=== PATIENT | female | born 1955 | race Two or more races ===

== ENCOUNTER 2020-01-08 10:28 | Outpatient (REF) | payer MEDICARE, SELFPAY | END 2020-01-08 10:29 | disposition home or self-care (01) | LOC: HO.LAB 10:28 | PROVIDERS: PCP Internal Medicine; Visit Provider Internal Medicine | DX: Z20.828 Contact with and (suspected) exposure to other viral communicable diseases (principal) | CPT/HCPCS: 87635 ==

== ENCOUNTER → 2020-04-12 13:15 | Outpatient (BNVA) | payer MEDICARE, SELFPAY | PROVIDERS: PCP Internal Medicine; Visit Provider Advanced Practice Midwife ==

== ENCOUNTER 2020-10-12 13:22 | Outpatient (REF) | payer MEDICARE, SELFPAY ==
--- NOTE | ~2020-10-12 | MM_ITS ---
EXAMINATION: BONE DENSITOMETRY CLINICAL INDICATION: Asymptomatic menopausal state. COMPARISON: None (current study represents initial baseline exam). TECHNIQUE: Using a [employer] DXA System (software version: 13.1) manufactured by [employer], dual-energy x-ray absorptiometry was performed of the lumbar spine and left hip. The images are of good technical quality. Summary results are attached. FINDINGS: AP SPINE L1-L4: BMD 1.061 g/cm2, Z-score 0.1, T-score -1.0, normal. LEFT FEMUR, NECK: BMD 0.814 g/cm2, Z-score -0.4, T-score -1.6, osteopenia. LEFT FEMUR, TOTAL: BMD 0.968 g/cm2, Z-score 0.6, T-score -0.3, normal. IDENTIFIED RISK FACTORS: Menopause. HISTORY OF FRACTURE: None listed. MEDICATIONS: Calcium supplements or multivitamin, vitamin D. MM/XR DEXA axial skeleton IMPRESSION: 1. DIAGNOSIS: Osteopenia based on the lowest T-score value of -1.6 in the femoral neck applying World Health Organization criteria. 2. 10-YEAR FRACTURE RISK PREDICTION, FRAX: Major osteoporotic fracture (clinical spine, forearm, hip or shoulder) 5.0%. Hip fracture 0.6%. 3. Treatment Recommendations: NOF guidelines recommend consideration for treatment in postmenopausal women and men age 50 and older presenting with the following: -A hip or vertebral (clinical or morphometric) fracture. -T-score less than or equal to -2.5 at the femoral neck or spine after appropriate evaluation to exclude secondary causes. -Low bone mass at the hip or spine and a 10-year fracture probability by FRAX of greater than or equal to 3% for hip fracture or greater than or equal to 20% for major osteoporotic fracture based on the [place] adapted WHO algorithm. 4. Other Recommendations: All treatment decisions require clinical judgment and consideration of individual patient factors, including patient preferences, comorbidities, previous drug use, risk factors not captured in the FRAX model (e.g. frailty, falls, vitamin D deficiency, increased bone turnover, interval significant decline in bone density) and possible under or overestimation of fracture risk by FRAX. Additional medical evaluation for secondary cause of low bone mineral density may be appropriate. FUTURE SCAN RECOMMENDATION: People with diagnosed cases of osteoporosis or at high risk for fracture should have regular bone mineral density tests. For patients eligible for Medicare, routine testing is allowed once every 2 years. The testing frequency can be increased to one year for patients who have rapidly progressing disease, those who are receiving or discontinuing medical therapy to restore bone mass, or have additional risk factors.
== END 2020-10-12 13:23 | disposition home or self-care (01) ==
LOC: HO.MAMMO 13:22
PROVIDERS: PCP Internal Medicine; Visit Provider Internal Medicine
DX: Z13.820 Encounter for screening for osteoporosis (principal); M85.80 Other specified disorders of bone density and structure, unspecified site; Z78.0 Asymptomatic menopausal state; Z79.899 Other long term (current) drug therapy
CPT/HCPCS: 77080

== ENCOUNTER → 2021-06-17 13:16 | Outpatient (BNVA) | payer MEDICARE, SELFPAY | PROVIDERS: PCP Internal Medicine; Visit Provider Advanced Practice Midwife | DX: Z13.89 Encounter for screening for other disorder (principal) ==

== ENCOUNTER 2021-07-23 08:53 | Outpatient (REF) | payer MEDICARE, SELFPAY ==
[2021-07-23 10:03] LABS: Alanine Aminotransferase 22 U/L (0-31); Albumin Level 4.5 g/dL (3.5-5.0); Alkaline Phosphatase 63 U/L (39-117); Anion Gap 14 (12-20); Aspartate Amino Transferase 21 U/L (5-31); Bilirubin Total 0.6 mg/dL (0.0-1.0); Blood Urea Nitrogen 10 mg/dL (9-16); Calcium 9.9 mg/dL (8.4-10.2); Carbon Dioxide 24 mmol/L (22-29); Chloride 107 mmol/L (96-108); Cholesterol 236 mg/dL; Estimated Glomerular Filt Rate > 60; Glucose Fasting 94 mg/dL (60-99); HDL Cholesterol 50 mg/dL; LDL Cholesterol Calculated 153 mg/dl; Potassium 4.2 mmol/L (3.3-5.1); Sodium 141 mmol/L (135-145); Total Protein 7.6 g/dL (6.5-8.0); Triglycerides 166 mg/dL
[2021-07-23 10:30] LABS: Free T4 (Free Thyroxine) 1.09 ng/dL (0.71-1.85); Thyroid Stimulating Hormone 2.36 uIU/mL (0.32-4.0)
[2021-07-28 13:12] LABS: Vitamin D 25-OH, D2 <4 ng/mL; Vitamin D 25-OH, D3 33 ng/mL; Vitamin D 25-OH, Total 33 ng/mL (30-100)
== END 2021-07-23 08:54 | disposition home or self-care (01) ==
LOC: HO.LAB 08:53
PROVIDERS: PCP Internal Medicine; Visit Provider Internal Medicine
DX: E03.9 Hypothyroidism, unspecified (principal); E66.9 Obesity, unspecified; E55.9 Vitamin D deficiency, unspecified
CPT/HCPCS: 36415; 80053; 80061; 82306; 84439; 84443

== ENCOUNTER 2021-12-08 09:06 | Outpatient (REF) | payer MEDICARE, SELFPAY ==
[2021-12-08 10:14] LABS: Alanine Aminotransferase 29 U/L (0-31); Albumin Level 4.4 g/dL (3.5-5.0); Alkaline Phosphatase 59 U/L (39-117); Anion Gap 14 (12-20); Aspartate Amino Transferase 25 U/L (5-31); Bilirubin Total 0.3 mg/dL (0.0-1.0); Blood Urea Nitrogen 9 mg/dL (9-16); Calcium 9.9 mg/dL (8.4-10.2); Carbon Dioxide 27 mmol/L (22-29); Chloride 106 mmol/L (96-108); Cholesterol 211 mg/dL; Estimated Glomerular Filt Rate > 60; Glucose Fasting 97 mg/dL (60-99); HDL Cholesterol 54 mg/dL; LDL Cholesterol Calculated 139 mg/dl; Potassium 4.7 mmol/L (3.3-5.1); Sodium 142 mmol/L (135-145); Total Protein 7.3 g/dL (6.5-8.0); Triglycerides 94 mg/dL
[2021-12-08 10:35] LABS: Thyroid Stimulating Hormone 1.87 uIU/mL (0.32-4.0); Vitamin D 25-OH Total 31.5 ng/mL (>30)
== END 2021-12-08 09:07 | disposition home or self-care (01) ==
LOC: HO.LAB 09:06
PROVIDERS: PCP Internal Medicine; Visit Provider Internal Medicine
DX: E78.00 Pure hypercholesterolemia, unspecified (principal); E55.9 Vitamin D deficiency, unspecified; E78.5 Hyperlipidemia, unspecified; E03.9 Hypothyroidism, unspecified
CPT/HCPCS: 36415; 80053; 80061; 82306; 84443

== ENCOUNTER 2022-04-18 10:00 | Outpatient (REF) | payer MEDICARE, SELFPAY ==
[2022-04-18 11:38] LABS: Alanine Aminotransferase 24 U/L (0-31); Albumin Level 4.3 g/dL (3.5-5.0); Alkaline Phosphatase 62 U/L (39-117); Anion Gap 13 (12-20); Aspartate Amino Transferase 21 U/L (5-31); Bilirubin Total 0.5 mg/dL (0.0-1.0); Blood Urea Nitrogen 7 mg/dL (9-16); Calcium 9.4 mg/dL (8.4-10.2); Carbon Dioxide 22 mmol/L (22-29); Chloride 110 mmol/L (96-108); Cholesterol 219 mg/dL; Estimated Glomerular Filt Rate > 60; Glucose Fasting 93 mg/dL (60-99); HDL Cholesterol 50 mg/dL; LDL Cholesterol Calculated 147 mg/dl; Potassium 4.3 mmol/L (3.3-5.1); Sodium 141 mmol/L (135-145); Triglycerides 114 mg/dL
[2022-04-18 11:52] LABS: Thyroid Stimulating Hormone 2.79 uIU/mL (0.32-4.0); Vitamin D 25-OH Total 24.1 ng/mL (>30)
== END 2022-04-18 10:01 | disposition home or self-care (01) ==
LOC: HO.LAB 10:00
PROVIDERS: PCP Internal Medicine; Visit Provider Internal Medicine
DX: E03.9 Hypothyroidism, unspecified (principal); I10 Essential (primary) hypertension; E55.9 Vitamin D deficiency, unspecified; E78.5 Hyperlipidemia, unspecified
CPT/HCPCS: 36415; 80053; 80061; 82306; 84443

== ENCOUNTER 2022-10-03 10:49 | Outpatient (REF) | payer MEDICARE, SELFPAY ==
--- NOTE | ~2022-10-03 | MM_ITS ---
EXAMINATION: MM SCREENING DIGITAL BREAST TOMOSYNTHESIS, BILATERAL CLINICAL INFORMATION: Screening. Asymptomatic. The lifetime risk of breast cancer based on the Tyrer-Cuzick Model is 9.1%. COMPARISON: Mammography: This study is compared with prior exams dating back to 2019. TECHNIQUE: Digital breast tomosynthesis is performed in both the craniocaudal and mediolateral oblique views along with computer-aided detection (CAD). Synthesized 2D images are generated from the tomosynthesis. FINDINGS: There are scattered areas of fibroglandular density (ACR BI-RADS breast composition Category b). There are no significant masses, abnormal calcifications, or other abnormalities. MM/MM tomosynthesis screening BI IMPRESSION: No mammographic evidence of malignancy. ASSESSMENT: BI-RADS BI-RADS 1 - Negative RECOMMENDATION: Routine annual mammography screening. 1 year F/U This examination should not preclude the clinical evaluation of a suspicious palpable abnormality. This patient's information was entered into a reminder system with a target due date for their next mammogram.
== END 2022-10-03 10:50 | disposition home or self-care (01) ==
LOC: HO.MAMMO 10:49
PROVIDERS: PCP Internal Medicine; Visit Provider Internal Medicine
DX: Z12.31 Encounter for screening mammogram for malignant neoplasm of breast (principal)
CPT/HCPCS: 77063; 77067

== ENCOUNTER → 2022-10-03 11:00 | Outpatient (BNV) | payer MEDICARE, SELFPAY | PROVIDERS: PCP Internal Medicine; Visit Provider Radiology Diagnostic Radiology | DX: Z12.31 Encounter for screening mammogram for malignant neoplasm of breast (principal) | CPT/HCPCS: 77063; 77067 ==

== ENCOUNTER 2022-10-20 12:49 | Outpatient (REF) | payer MEDICARE, SELFPAY ==
--- NOTE | ~2022-10-20 | MM_ITS ---
EXAMINATION: BONE DENSITOMETRY CLINICAL INDICATION: Menopause. COMPARISON: Baseline BD dated 10/12/2020. TECHNIQUE: Using a [employer] DXA System (software version: 13.1) manufactured by [employer], dual-energy x-ray absorptiometry was performed of the lumbar spine and left hip. The images are of good technical quality. Summary results are attached. FINDINGS: LEFT FEMUR, NECK: Current: BMD 0.768 g/cm2, Z-score -0.5, T-score -1.9, osteopenia. Baseline: BMD 0.814 g/cm2. LEFT FEMUR, TOTAL: Current: BMD 0.910 g/cm2, Z-score 0.4, T-score -0.8, normal, 6.0% decrease from baseline (<5% change is not significant). Baseline: BMD 0.968 g/cm2. AP SPINE L1-L4: Current: BMD 1.024 g/cm2, Z-score 0.1, T-score -1.3, osteopenia, 3.5% decrease from baseline (<5% change is not significant). Baseline: BMD 1.061 g/cm2. IDENTIFIED RISK FACTORS: Menopause. HISTORY OF FRACTURE: None listed. MEDICATIONS: None listed. MM/XR DEXA axial skeleton IMPRESSION: 1. DIAGNOSIS: Osteopenia based on the lowest T-score value of -1.9 in the femoral neck applying World Health Organization criteria. 2. 10-YEAR FRACTURE RISK PREDICTION, FRAX: Major osteoporotic fracture (clinical spine, forearm, hip or shoulder) 6.3%. Hip fracture 1.0%. 3. Treatment Recommendations: NOF guidelines recommend consideration for treatment in postmenopausal women and men age 50 and older presenting with the following: -A hip or vertebral (clinical or morphometric) fracture. -T-score less than or equal to -2.5 at the femoral neck or spine after appropriate evaluation to exclude secondary causes. -Low bone mass at the hip or spine and a 10-year fracture probability by FRAX of greater than or equal to 3% for hip fracture or greater than or equal to 20% for major osteoporotic fracture based on the [place] adapted WHO algorithm. 4. Other Recommendations: All treatment decisions require clinical judgment and consideration of individual patient factors, including patient preferences, comorbidities, previous drug use, risk factors not captured in the FRAX model (e.g. frailty, falls, vitamin D deficiency, increased bone turnover, interval significant decline in bone density) and possible under or overestimation of fracture risk by FRAX. Additional medical evaluation for secondary cause of low bone mineral density may be appropriate. FUTURE SCAN RECOMMENDATION: People with diagnosed cases of osteoporosis or at high risk for fracture should have regular bone mineral density tests. For patients eligible for Medicare, routine testing is allowed once every 2 years. The testing frequency can be increased to one year for patients who have rapidly progressing disease, those who are receiving or discontinuing medical therapy to restore bone mass, or have additional risk factors.
== END 2022-10-20 12:50 | disposition home or self-care (01) ==
LOC: HO.MAMMO 12:49
PROVIDERS: PCP Internal Medicine; Visit Provider Internal Medicine
DX: N95.9 Unspecified menopausal and perimenopausal disorder (principal); M85.80 Other specified disorders of bone density and structure, unspecified site
CPT/HCPCS: 77080

== ENCOUNTER → 2022-10-20 13:00 | Outpatient (BNV) | payer MEDICARE, SELFPAY | PROVIDERS: PCP Internal Medicine; Visit Provider Radiology Diagnostic Radiology | DX: N95.9 Unspecified menopausal and perimenopausal disorder (principal) | CPT/HCPCS: 77080 ==

== ENCOUNTER 2022-10-30 10:53 | Outpatient (REF) | payer MEDICARE, SELFPAY ==
[2022-10-30 15:23] VITALS: BMI 28.7
[2022-10-30 15:24] VITALS: BP 141/82; PULSE 67; RESP 18; TEMP 37.2; O2SAT 99
== END 2022-10-30 10:54 | disposition home or self-care (01) ==
LOC: HO.MS 10:53
PROVIDERS: PCP Internal Medicine; Visit Provider Ophthalmology
PROC: (CPT 66821; principal; 2022-10-30 13:10)
DX: H26.492 Other secondary cataract, left eye (principal)
CPT/HCPCS: 66821

== ENCOUNTER 2022-10-31 14:30 | Outpatient (AMB) | payer MEDICARE, SELFPAY ==
--- NOTE | 2022-10-31 14:38 | A.OFFVIS_ITS ---
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 female here today for pre colonoscopy screening.? Patient was sent to us by her PCP.? Patient had colonoscopy in November of 2014. One tubular adenoma found.? Patient denies any gastrointestinal symptoms in the past or at present.? No immediate family history of colorectal cancer. Denies history of difficulty with sedation or anesthesia in the past.? Negative for history of sleep apnea.? Denies any history of cardiac, renal, pulmonary, or hepatic disease.?? No history of infectious? diseases like hepatitis A, B, C, HIV or tuberculosis.? Patient is not on any anticoagulation therapy. [facility] Medical History Anxiety associated with depression Hypothyroid Lumbar strain Menopause present Obese Physical exam Polyarthralgia Pure hypercholesterolemia Surgical History History of hand surgery History of laparoscopic cholecystectomy Family History Father No problems noted. Mother Diabetes CHF (congestive heart failure) CKD (chronic kidney disease) Paternal Grandmother Breast cancer Brother Leukemia Paternal Aunt Breast cancer Social History Housing: House Alcohol intake: current Alcohol intake frequency: holidays/special occasions only Alcohol type: beer Patient Tobacco Use Status: Never used Tobacco Tobacco use type: Cigarette e-Cigarette/Vaping Use: Never Used Second Hand Smoke Exposure: No service: No Current occupational status: retired Cognitive needs: No Hearing needs: No Vision needs: No Female Reproductive History Menstrual Age of Menarche: 9 Review of Systems Const Denies weight gain and Denies weight loss ENT Reports no additional complaints, Denies dysphagia and Denies odynophagia Card Reports no additional complaints Resp Reports no additional complaints GI Denies abdominal pain, Denies belching, Denies melena, Denies bloating, Denies change in bowel habits, Denies dysphagia, Denies excessive flatus, Denies dyspepsia, Denies heartburn, Denies diarrhea, Denies loose stools, Denies nausea, Denies odynophagia and Denies vomiting Musc Reports no additional complaints Neuro Reports no additional complaints Psych Reports no additional complaints Endo Reports no additional complaints Physical Exam Vital Signs: Last Vital Signs Pulse 80 10/31/22 14:39 BP 127/76 10/31/22 14:39 BMI result Body Mass Index 28.7 Assessment & Plan Assessment & Plan (1) Tubular adenoma of colon: Code(s): D12.6 - Benign neoplasm of colon, unspecified Plan: One tubular adenoma found on colonoscopy in 2014. (2) Screen for colon cancer: Code(s): Z12.11 - Encounter for screening for malignant neoplasm of colon Plan: Patient denies any GI, cardiac or respiratory symptoms.? Denies any issues with anesthesia in the past.? Denies any history of sleep apnea.? No history infectious diseases in the past or present.? Not on any anticoagulation therapy.? No family or personal history of colon cancer or polyps.? Patient denies melena, hematochezia, unintentional weight loss or ribbon like stools.? Discussed at length the pre-procedure,? prep, diet & medications as well as what to expect prior, during and after the procedure.?? Stressed the importance of good bowel prep. ?Recommended the use of Vaseline or Calmoseptine OTC & baby wipes with bowel movements to promote comfort.? ?Patient verbalizes understanding and agrees to plan of care.? She was given the opportunity to ask questions and all questions answered.? We will see her after the procedure.? Medications: New bisacodyl (Dulcolax (bisacodyl)) take 2 tabs at noon the day before your colonoscopy 10 mg (2 x 5 mg) PO ONCE 1 day 2 tabs 0RF Z12.11 - Encounter for screening for malignant neoplasm of colon polyethylene glycol 3350 (Miralax) As directed by gastroenterology department at [facility] 238 grams PO ONCE 238 grams 0RF Z12.11 - Encounter for screening for malignant neoplasm of colon Coding Level of Care Code New Pt Level 3 (28598) Diagnoses Tubular adenoma of colon D12.6 Screen for colon cancer Z12.11 Time Spent (min) 40 Comment 30 minutes spent with patient and additional 10 minutes spent reviewing her records
[2022-10-31 14:39] VITALS: BP 127/76; PULSE 80; BMI 28.7
== END 2022-10-31 15:14 | disposition home or self-care (01) ==
PROVIDERS: PCP Internal Medicine; Visit Provider Nurse Practitioner Family
DX: D12.6 Benign neoplasm of colon, unspecified (principal); Z12.11 Encounter for screening for malignant neoplasm of colon
CPT/HCPCS: 99203

== ENCOUNTER → 2022-10-31 14:30 | Outpatient (BNVA) | payer MEDICARE, SELFPAY | PROVIDERS: PCP Internal Medicine; Visit Provider Nurse Practitioner Family | DX: Z12.11 Encounter for screening for malignant neoplasm of colon (principal); D12.6 Benign neoplasm of colon, unspecified | CPT/HCPCS: 99202 ==

== ENCOUNTER 2022-11-13 12:52 | Outpatient (REF) | payer MEDICARE, SELFPAY ==
[2022-11-13 13:24] VITALS: BP 159/79; PULSE 79; RESP 16; TEMP 37.1; O2SAT 99
[2022-11-13 13:28] VITALS: BMI 28.7
== END 2022-11-13 12:53 | disposition home or self-care (01) ==
LOC: HO.MS 12:52
PROVIDERS: PCP Internal Medicine; Visit Provider Ophthalmology
PROC: (CPT 66821; principal; 2022-11-13 14:50)
DX: H26.491 Other secondary cataract, right eye (principal)
CPT/HCPCS: 66821

== ENCOUNTER 2023-02-06 08:38 | Outpatient (REF) | payer MEDICARE, SELFPAY ==
[2023-02-06 10:07] LABS: Alanine Aminotransferase 23 U/L (0-31); Albumin Level 4.5 g/dL (3.5-5.0); Alkaline Phosphatase 61 U/L (39-117); Anion Gap 12 (12-20); Aspartate Amino Transferase 23 U/L (5-31); Bilirubin Total 0.3 mg/dL (0.0-1.0); Blood Urea Nitrogen 7 mg/dL (9-16); Calcium 9.8 mg/dL (8.4-10.2); Carbon Dioxide 29 mmol/L (22-29); Chloride 106 mmol/L (96-108); Cholesterol 215 mg/dL (<200); Estimated Glomerular Filt Rate 59; Glucose Fasting 88 mg/dL (60-99); HDL Cholesterol 58 mg/dL (>40); LDL Cholesterol Calculated 138 mg/dL (<100); Potassium 4.4 mmol/L (3.3-5.1); Sodium 143 mmol/L (135-145); Total Protein 7.9 g/dL (6.5-8.0); Triglycerides 97 mg/dL (<150)
[2023-02-06 10:22] LABS: Thyroid Stimulating Hormone 2.05 uIU/mL (0.32-4.0); Vitamin D 25-OH Total 34.2 ng/mL (>30)
== END 2023-02-06 08:39 | disposition home or self-care (01) ==
LOC: HO.LAB 08:38
PROVIDERS: PCP Internal Medicine; Visit Provider Internal Medicine
DX: E03.9 Hypothyroidism, unspecified (principal); E55.9 Vitamin D deficiency, unspecified; E78.5 Hyperlipidemia, unspecified; E78.00 Pure hypercholesterolemia, unspecified
CPT/HCPCS: 36415; 80053; 80061; 82306; 84443

== ENCOUNTER 2023-02-12 12:55 | Outpatient (AMB) | payer MEDICARE, SELFPAY ==
--- NOTE | 2023-02-12 13:17 | MHC.PC.OV ---
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 Accompanied by: Self / Same As Patient Allergies Penicillins [PENICILLINS] Allergy (Intermediate, Verified 02/12/23 13:35) RASH Medication List - Last Reconciled 02/12/23 by Ratna Palencia MD bisacodyl (Dulcolax (bisacodyl)) 10 mg (2 x 5 mg) PO ONCE 1 day ibuprofen 800 mg PO Q8H 30 days levothyroxine 50 mcg PO DAILY 90 days polyethylene glycol 3350 (Miralax) 238 grams PO ONCE Tobacco use date assessed: 07/10/22 Fall risk assessment: No Falls in past year Last assessed Fall Risk: 02/12/23 Dental Screening Dental Screen Date: 02/12/23 Did you have a dental visit in the last 12 months?: No Did you have a dental problem in the last 6 months where you did not have access to dental care?: No Was dental information given to patient?: Patient has dentist HPI HPI Comments History of Present Illness Details This is a 67 year old female with hypothyroidism, pure hypercholesterolemia and anxiety that complains of itchy scalp secondary to seborrheic dermatitis. Will prescribe selenium sulfide shampoo. TSH was normal. Cholesterol elevated but no need for statin due to low framingham risk score. Anxiety has worsen and sertraline was added. [facility] Medical History Lumbar strain Pure hypercholesterolemia Physical exam Polyarthralgia Obese Menopause present Hypothyroid Anxiety associated with depression Surgical History History of laparoscopic cholecystectomy History of hand surgery Family History Father No problems noted. Mother Diabetes CHF (congestive heart failure) CKD (chronic kidney disease) Paternal Grandmother Breast cancer Brother Leukemia Paternal Aunt Breast cancer Social History Housing: House Alcohol intake: current Alcohol intake frequency: holidays/special occasions only Alcohol type: beer Patient Tobacco Use Status: Never used Tobacco Tobacco use type: Cigarette e-Cigarette/Vaping Use: Never Used Second Hand Smoke Exposure: No service: No Current occupational status: retired Cognitive needs: No Hearing needs: No Vision needs: No Female Reproductive History Menstrual Age of Menarche: 9 Questionnaire Thrive Questionnaire Date Thrive assessed: 07/10/22 LOLIS-7 AMB Questionnaire LOLIS-7 Date LOLIS - 7 assessed: 08/08/22 Source: Developed by Drs. Bebo Herndon, Flor Ashby, Ramirez De La Garza and colleagues, with an educational ankur from [employer]. Review of Systems Const All systems reviewed & are unremarkable except as noted in HPI and below Eyes Reports no additional complaints, Denies change in vision and Denies other visual disturbances Card Denies chest pain at rest, Denies chest pain with activity, Denies edema, Denies irregular heart rhythm, Denies claudication, Denies dyspnea, Denies dyspnea on exertion, Denies orthopnea, Denies paroxysmal nocturnal dyspnea and Denies slow heart rate Resp Denies cough, Denies dyspnea and Denies dyspnea on exertion GI Denies abdominal pain, Denies change in bowel habits, Denies excessive flatus, Denies nausea and Denies vomiting Denies urinary incontinence, Denies urinary hesitancy and Denies urinary urgency Musc Denies abnormal gait, Denies atrophy, Denies deformity and Denies limited range of motion Skin/Breast Denies bleeding lesions, Denies changing lesions and Denies rash Neuro Denies abnormal gait and Denies lack of coordination Physical exam (Primary Care) Vital Signs: Last Vital Signs BP 130/70 02/12/23 13:18 BMI result Body Mass Index 28.3 Tobacco/Smoking Status: Tobacco use Status Tobacco use date assessed 07/10/22 02/12/23 13:21 Patient Tobacco Use Status Never used Tobacco 02/12/23 13:21 Tobacco use type Cigarette 02/12/23 13:21 e-Cigarette/Vaping Use Never Used 02/12/23 13:21 Thrive Assessment: Date of Thrive Assessment Date Thrive assessed 07/10/22 02/12/23 13:21 Eyes General: appearance normal, both eyes and all related structures Eyelids: Yes eyelids normal Conjunctivae: conjunctivae normal Neck Neck: Yes normal visual inspection and Yes supple Resp Effort & Inspection: normal respiratory effort Auscultation: clear to auscultation bilaterally Cardio Jugular venous distension: no JVD Rate: regular rate Rhythm: regular rhythm Heart sounds: S1 normal heart sound present and S2 normal heart sound present Extrem General: Yes full ROM Office Procedures Flu Questionnaire Does the patient have a severe egg allergy?: No Does the patient have severe life threatening allergies?: No Does the patient have a fever or illness today?: No Has the patient ever had Guillain-[place] Syndrome?: No Has the patient ever had any past reaction to a flu shot?: No Immunizations flu vacc [id number] 6mos up(PF) 60 mcg(15 mcgx4)/0.5 mL IM syringe Performing Provider: Ratna Palencia MD [facility] Administered by: JAQUAN Acosta on 02/12/23 13:50 Dose Route Admin Location Dispensed Lot Number Expiration Date NDC Consultant Internship 0.5 mL IM Right Deltoid 0.5 mL [id number] 09/23/23 [id number] [employer] VIS Given Date VIS Provided VIS Publication Date 02/12/23 Single Vaccine 20 Eligibility Eligibility Date Funding Source Not [facility] Eligible 02/12/23 Private Assessment and Plan Assessment & Plan (1) Hypothyroid: Code(s): E03.9 - Hypothyroidism, unspecified Qualifiers: Hypothyroidism type: acquired Qualified Code(s): E03.9 - Hypothyroidism, unspecified Plan: Continue levothyroxine. (2) Anxiety: Code(s): F41.9 - Anxiety disorder, unspecified Plan: Start sertraline. (3) Pure hypercholesterolemia: Code(s): E78.00 - Pure hypercholesterolemia, unspecified Plan: Continue low-cholesterol diet. (4) Seborrheic dermatitis of scalp: Code(s): L21.9 - Seborrheic dermatitis, unspecified Plan: Start selenium sulfide shampoo. Orders: Orders Influenza [id number] Immunization Today Z23 - Encounter for immunization Medications: New sertraline 25 mg PO DAILY 90 tabs 0RF 90 days F41.9 - Anxiety disorder, unspecified selenium sulfide 1% (Dandruff Shampoo (selenium sulfide)) massage into affected area; leave on for 10 mins ; rinse off thoroughly 1 appl topical DAILY 207 mL 3RF 30 days Discontinued ibuprofen Discontinued Reason: Patient Completed Course 800 mg PO Q8H 30 days 90 tabs 2RF Coding Level of Care Code Est Pt Level 4 (73174) Diagnoses Acquired hypothyroidism E03.9 Hypothyroidism type: acquired Anxiety F41.9 Pure hypercholesterolemia E78.00 Seborrheic dermatitis of scalp L21.9 Time Spent (min) 22
[2023-02-12 13:18] VITALS: BP 130/70; BMI 28.3
== END 2023-02-12 13:50 | disposition home or self-care (01) ==
PROVIDERS: Visit Provider Internal Medicine
DX: E03.9 Hypothyroidism, unspecified (principal); F41.9 Anxiety disorder, unspecified; E78.00 Pure hypercholesterolemia, unspecified; L21.9 Seborrheic dermatitis, unspecified; Z23 Encounter for immunization
CPT/HCPCS: 90471; 90686; 99214

== ENCOUNTER 2023-04-24 12:40 | Day surgery (SDC) | payer MEDICARE, SELFPAY ==
--- NOTE | 2023-04-24 13:34 | MHC.SHP ---
Pre-Procedural Eval Section A - 24 Hr Update-Section A only Date of Service: 04/24/23 Section B - Complete if H&P > 30 days Chief Complaint: Benign neoplasm of colon, unspecified Relevant Social History: None Present Medications: see Short Stay Collaborative assessment Medical History: Significant History (Lumbar strain Pure hypercholesterolemia Physical exam Polyarthralgia Obese Menopause present Hypothyroid Anxiety associated with depression) History of Previous Operations: Relevant previous surgery/procedure and date(s) (History of laparoscopic cholecystectomy History of hand surgery) Allergies: Allergies Allergy/AdvReac Type Severity Reaction Status Date / Time Penicillins [PENICILLINS] Allergy Intermediate RASH Verified 02/12/23 13:35 Review of Systems Sugical H&P ROS: Negative: Constitution, Cardiovascular, Respiratory, Neurological, Psychiatric, Hem-Onc, Allergic/Immunologic, Gastrointestinal, Genitourinary, Musculoskeletal, Integumentary, Endocrine and Eyes/Ears/Nose/Throat Exam Surgical H&P Exam: Normal: HEENT, Normal: Heart, Normal: Lungs, Normal: Extremities, Normal: Abdomen, Normal: Skin and Normal: Neurological Plan Diagnosis/Plan: Unchanged I have reviewed the history and physical and performed a pertinent physical examination on my patient. No changes have occurred unless specified. Time Spent With Patient Time: Total time managing care of this patient today ____ minutes.
[2023-04-24 13:51] VITALS: BP 137/70; PULSE 88; RESP 16; TEMP 36.5; O2SAT 99
[2023-04-24 13:58] VITALS: BMI 28.6
--- NOTE | 2023-04-24 14:18 | HO.ANESPROP2 ---
HPI - Anesthesia Eval Consult details Narrative: for colonoscopy [facility] Active Problems Active Problems: All Active Problems (Updated 02/12/23 @ 14:32 by Ratna Palencia MD) Seborrheic dermatitis of scalp (Acute) Anxiety (Acute) Tubular adenoma of colon (Acute) Medicare annual wellness visit, initial (Acute) Eyelid lesion (Acute) Elevated blood pressure reading without diagnosis of hypertension (Acute) Hypovitaminosis D (Acute) Lumbar strain (Acute) Pure hypercholesterolemia (Acute) Physical exam (Acute) Polyarthralgia (Acute) Obese (Acute) Menopause present (Acute) Hypothyroid (Acute) Anxiety associated with depression (Acute) Past Medical History Medical History Lumbar strain Pure hypercholesterolemia Physical exam Polyarthralgia Obese Menopause present Hypothyroid Anxiety associated with depression Family History Family History Father No problems noted. Mother Diabetes CHF (congestive heart failure) CKD (chronic kidney disease) Paternal Grandmother Breast cancer Brother Leukemia Paternal Aunt Breast cancer Family history of problems with anesthesia: No Surgical History Surgical History History of laparoscopic cholecystectomy History of hand surgery History of Problems with Anesthesia: No Social History Social History Housing: House Alcohol intake: current Alcohol intake frequency: does not drink Alcohol type: beer Patient Tobacco Use Status: Never used Tobacco Tobacco use type: Cigarette e-Cigarette/Vaping Use: Never Used Second Hand Smoke Exposure: No Use of substances other than those prescribed or required for medical reasons: No Are you DNR?: No Advance Directives: No Advance Directives Information Provided: Yes Advance Directives on File: No service: No Current occupational status: retired Cognitive needs: No Hearing needs: No Vision needs: No Meds Allergies Allergy/AdvReac Type Severity Reaction Status Date / Time Penicillins [PENICILLINS] Allergy Intermediate RASH Verified 02/12/23 13:35 Exam Height,Weight and Vital Signs: Height 5 ft 2 in Weight 70.817 kg Last Vital Signs Temp 97.7 F 04/24/23 13:51 Pulse 88 04/24/23 13:51 Resp 16 04/24/23 13:51 BP 137/70 04/24/23 13:51 Pulse Ox 99 04/24/23 13:51 O2 Del Method Room Air 04/24/23 13:51 Airway Mallampati Class: II TM Dist: >3cm Neck ROM: Full Heart: rrr Lungs: cta Assessment and Plan Assessment Anesthesia Assessment: Anesthesia Plan Discussed and Chart Reviewed Final Anesthetic Review Family History of Problems with Anesthesia: No History of Problems with Anesthesia: No NPO: Yes ASA Class: II Final Preanesthetic Review: No Changes in Pt Med Stat, Meds/Allgs Chart Reviewed, Consent Obtained/Reviewed and Anes Risks/Benef Reviewed Patient Risk: Low Procedure Risk: Low Anesthetic Plan Anesthetic Plan: MAC: Disposition: Standard PACU
--- NOTE | 2023-04-24 14:29 | P.OP_ITS ---
Operative Note Operative Note Date of Service: 04/24/23 Narrative: Operative Information Procedure Description: Colonoscopy Indication: hx of colon polyp Anesthesia: MAC COLONOSCOPY Instrument: Olympus variable stiffness pediatric scope 190L Colonoscopy Monitoring: Vital signs and clinical assessment, continuous EKG monitoring, Pulse oximetry, Carbon Dioxide monitoring and blood pressure monitoring were done throughout the procedure. Colon withdrawal time was [] minutes. Procedure: The patient was placed in the left lateral decubitis position and pre-procedure medications were administered. After a digital rectal examination of the ano-rectum, the video colonoscope was inserted into the rectum and advanced through the colon to the cecum/TI. The colonoscope was slowly withdrawn in a retrograde panoramic fashion and the colon mucosa was carefully examined including a retroflexed view of the rectum. Findings and interventions are described below. Procedure Difficulty: easy Findings: Terminal Ileum-normal Cecum:normal Ascending Colon: normal Transverse Colon -normal Descending Colon:normal Sigmoid Colon: moderate diverticulosis Rectum: Retroflexion with small to medium internal hemorrhoids, grade I, 4-5 mm sessile polyp removed with cold forceps Anorectum - normal Colon preparation: [place] Bowel Preparation Scale Right colon; 2 Transverse colon: 2 Left colon; 1-2 (0 = Unprepared colon segment with mucosa not seen due to solid stool that cannot be cleared. 1 = Portion of mucosa of the colon segment seen, but other areas of the colon segment not well seen due to staining, residual stool and/or opaque liquid. 2 = Minor amount of residual staining, small fragments of stool and/or opaque liquid, but mucosa of colon segment seen well. 3 = Entire mucosa of colon segment seen well with no residual staining, small fragments of stool or opaque liquid) Impression and Post Procedure Diagnosis: polyp internal hemorrhoids diverticular disease Plan: High fiber diet leaflet Avoid straining at stool, epsom salts and sitz bath, anusol supps or cream Repeat Colonoscopy in 5 years due to fair prep and polyp or earlier if clinically indicated Above findings were reviewed with the patient and relevant handouts were provided if indicated.
[2023-04-24 14:54] VITALS: BP 120/59; PULSE 81; RESP 19; TEMP 36.4; O2SAT 100
[2023-04-24 15:09] VITALS: BP 134/68; PULSE 68; RESP 17; TEMP 36.3; O2SAT 100
== END 2023-04-24 15:56 | disposition home or self-care (01) ==
PROVIDERS: PCP Internal Medicine; Visit Provider Internal Medicine Gastroenterology
PROC: 0DJD8ZZ Inspection of Lower Intestinal Tract, Via Natural or Artificial Opening Endoscopic (ICD-10-PCS; CPT 45378; principal; 2023-04-24 14:50)
DX: Z12.11 Encounter for screening for malignant neoplasm of colon (principal); Z86.010 Personal history of colon polyps; D12.8 Benign neoplasm of rectum; K57.30 Diverticulosis of large intestine without perforation or abscess without bleeding; K64.0 First degree hemorrhoids; F41.8 Other specified anxiety disorders; E03.9 Hypothyroidism, unspecified; E78.00 Pure hypercholesterolemia, unspecified; M25.50 Pain in unspecified joint; Z88.0 Allergy status to penicillin; Z90.49 Acquired absence of other specified parts of digestive tract
CPT/HCPCS: 45380; 88305; J2704

== ENCOUNTER → 2023-04-24 12:40 | Outpatient (BNV) | payer MEDICARE, SELFPAY | PROVIDERS: PCP Internal Medicine; Visit Provider Internal Medicine Gastroenterology | DX: Z12.11 Encounter for screening for malignant neoplasm of colon (principal); Z86.010 Personal history of colon polyps; D12.8 Benign neoplasm of rectum; K57.30 Diverticulosis of large intestine without perforation or abscess without bleeding | CPT/HCPCS: 45380 ==

== ENCOUNTER 2023-06-12 10:19 | Outpatient (AMB) | payer MEDICARE, SELFPAY ==
--- NOTE | 2023-06-12 10:23 | A.OFFVIS_ITS ---
Intake Vital Signs 06/12/23 10:25 Height 5 ft 2 in Weight 154 lb 5.177 oz BMI 28.2 BP 139/67 Blood Pressure Location Lt brachial Position Sitting Pulse 72 Intake Visit Reasons: S/p colon Intake Note: Jessica presents in the office as a follow up colonsocopy. CC: She is just here for the results. [place] Required: Yes Weaver [place] Name: [id number] joseph Allergies Penicillins [PENICILLINS] Allergy (Intermediate, Verified 06/12/23 10:27) RASH HPI S/p colon HPI Details LAST VISIT Tubular adenoma of colon One tubular adenoma found on colonoscopy in 2014. Screen for colon cancer Patient denies any GI, cardiac or respiratory symptoms.? Denies any issues with anesthesia in the past.? Denies any history of sleep apnea.? No history infectious diseases in the past or present.? Not on any anticoagulation therapy.? No family or personal history of colon cancer or polyps.? Patient denies melena, hematochezia, unintentional weight loss or ribbon like stools.? Discussed at length the pre-procedure,? prep, diet & medications as well as what to expect prior, during and after the procedure.?? Stressed the importance of good bowel prep. ?Recommended the use of Vaseline or Calmoseptine OTC & baby wipes with bowel movements to promote comfort.? ?Patient verbalizes understanding and agrees to plan of care.? She was given the opportunity to ask questions and all questions answered.? We will see her after the procedure.? Plan Medications New bisacodyl (Dulcolax (bisacodyl)) take 2 tabs at noon the day before your colonoscopy 10 mg (2 x 5 mg) PO ONCE 1 day 2 tabs 0RF Z12.11 - Encounter for screening for malignant neoplasm of colon polyethylene glycol 3350 (Miralax) As directed by gastroenterology department at [facility] 238 grams PO ONCE 238 grams 0RF Z12.11 - Encounter for screening for malignant neoplasm of colon COLONOSCOPY Findings: Terminal Ileum-normal Cecum:normal Ascending Colon: normal Transverse Colon -normal Descending Colon:normal Sigmoid Colon: moderate diverticulosis Rectum: Retroflexion with small to medium internal hemorrhoids, grade I, 4-5 mm sessile polyp removed with cold forceps Anorectum - normal Colon preparation: [place] Bowel Preparation Scale Right colon; 2 Transverse colon: 2 Left colon; 1-2 (0 = Unprepared colon segment with mucos a not seen due to solid stool that cannot be cleared. 1 = Portion of mucosa of the colon segme nt seen, but other areas of the colon segment not well seen due to staining, residual stool and/or opaque liquid. 2 = Minor amount of residual staining, s mall fragments of stool and/or opaque liquid, but mucosa of colon segment seen well. 3 = Entire mucosa of colon segment seen well with no residual staining, small fragments of stool or opaque liquid) Impression and Post Procedure Diagnosis: polyp internal hemorrhoids diverticular disease Plan: High fiber diet leaflet Avoid straining at stool, epsom salts and sitz bath, anusol supps or cream Repeat Colonoscopy in 5 years due to fair prep and polyp or earlier if clinically indicated PATHOLOGY RESULTS Diagnosis Colon, rectal polyp: Tubular adenoma; negative for high-grade dysplasia and carcinoma TODAY'S VISIT: Patient is here today for follow-up and to discuss colonoscopy results. Patient denies any ill effects from the prep, anesthesia or procedure itself. Patient reports that she has been feeling well, moving her bowels without any issues. Patient denies diarrhea, constipation. Denies any abdominal pain or discomfort. Reports that she has good appetite. Denies dyspepsia, dysphagia or odynophagia. Patient reports to be feeling well. 1 small polyp showing tubular adenoma without high-grade dysplasia or carcinoma found in the patient's rectum. Internal hemorrhoids and moderate diverticulosis in sigmoid colon. Patient reports that she is trying to increase fiber in her diet. [facility] Medical History (Updated 06/12/23 @ 19:04 by Ashley Mcnair MAPPING SPECIALIST-) Internal hemorrhoids without complication Diverticulosis Lumbar strain Pure hypercholesterolemia Physical exam Polyarthralgia Obese Menopause present Hypothyroid Anxiety associated with depression Surgical History (Updated 06/12/23 @ 10:28 by JAQUAN Rea) Hx of colonoscopy History of laparoscopic cholecystectomy History of hand surgery Family History Father No problems noted. Mother Diabetes CHF (congestive heart failure) CKD (chronic kidney disease) Paternal Grandmother Breast cancer Brother Leukemia Paternal Aunt Breast cancer Social History Housing: House Alcohol intake: current Alcohol intake frequency: does not drink Alcohol type: beer Patient Tobacco Use Status: Never used Tobacco Tobacco use type: Cigarette e-Cigarette/Vaping Use: Never Used Second Hand Smoke Exposure: No service: No Current occupational status: retired Cognitive needs: No Hearing needs: No Vision needs: No Female Reproductive History Menstrual Age of Menarche: 9 Review of Systems Const Denies weight gain and Denies weight loss ENT Reports no additional complaints, Denies dysphagia and Denies odynophagia Card Reports no additional complaints Resp Reports no additional complaints GI Denies abdominal pain, Denies belching, Denies melena, Denies bloating, Denies change in bowel habits, Denies dysphagia, Denies excessive flatus, Denies dyspep denisse, Denies heartburn, Denies diarrhea, Denies loose stools, Denies nausea, Denies odynophagia and Denies vomiting Musc Reports no additional complaints Neuro Reports no additional complaints Psych Reports no additional complaints Endo Reports no additional complaints Physical Exam Vital Signs: Last Vital Signs Pulse 72 06/12/23 10:25 BP 139/67 06/12/23 10:25 BMI result Body Mass Index 28.2 Const General: healthy appearing, no acute distress and well developed Nutritional Appearance: obese Orientation/consciousness: patient oriented x3 Resp Effort & Inspection: normal respiratory effort, able to speak in complete sentences, no tracheal deviation and symmetric chest movement Auscultation: clear to auscultation bilaterally Cardio Rate: regular rate GI Inspection: Yes normal to inspection, No distended and Yes obesity Palpation (GI): Soft to palpation, not firm, nontender and No hepatosplenomegaly present Auscultation: normal bowel sounds General: Yes no CVA tenderness Back/Spine/Pelvis Back: no CVA tenderness Skin General skin exam: elasticity normal, turgor normal and dry skin Neuro General: patient oriented x3 Psych Appearance: grossly normal Mental Status: mental status grossly normal Assessment & Plan Assessment & Plan (1) Tubular adenoma of colon: Code(s): D12.6 - Benign neoplasm of colon, unspecified (2) Diverticulosis: Code(s): K57.90 - Diverticulosis of intestine, part unspecified, without perforation or abscess without bleeding (3) Internal hemorrhoids without complication: Code(s): K64.8 - Other hemorrhoids (4) Status post colonoscopy: Code(s): Z98.890 - Other specified postprocedural states Plan Colonoscopy results discussed with patient. One small tubular adenoma found without high-grade dysplasia or carcinoma. Patient had suboptimal prep and patient will return for colorectal screening in 5 years sooner if clinically necessary. Discussed with patient the importance of high-fiber diet. Patient can take [id number] probiotics as well as fiber supplement. Patient will return to the office on as needed basis. Both patient and her daughter are agreeable to plan of care and verbalizes understanding of instructions. They were given the opportunity to ask questions and all questions answered. Thank you for allowing me to participate her care Coding Level of Care Code Est Pt Level 3 (58726) Diagnoses Tubular adenoma of colon D12.6 Diverticulosis K57.90 Internal hemorrhoids without complication K64.8 Status post colonoscopy Z98.890 Time Spent (min) 30 Comment 20 minutes spent with patient and additional 10 minutes spent reviewing her records
[2023-06-12 10:25] VITALS: BP 139/67; PULSE 72; BMI 28.2
== END 2023-06-12 10:42 | disposition home or self-care (01) ==
PROVIDERS: PCP Internal Medicine; Visit Provider Nurse Practitioner Family
DX: D12.6 Benign neoplasm of colon, unspecified (principal); K57.90 Diverticulosis of intestine, part unspecified, without perforation or abscess without bleeding; K64.8 Other hemorrhoids; Z98.890 Other specified postprocedural states
CPT/HCPCS: 99213

== ENCOUNTER → 2023-06-12 10:19 | Outpatient (BNVA) | payer MEDICARE, SELFPAY | PROVIDERS: PCP Internal Medicine; Visit Provider Nurse Practitioner Family | DX: K57.90 Diverticulosis of intestine, part unspecified, without perforation or abscess without bleeding (principal); K64.8 Other hemorrhoids; D12.6 Benign neoplasm of colon, unspecified; Z90.49 Acquired absence of other specified parts of digestive tract; Z98.890 Other specified postprocedural states | CPT/HCPCS: 99212 ==

== ENCOUNTER 2023-07-31 10:40 | Outpatient (REF) | payer MEDICARE, SELFPAY ==
[2023-08-03 22:47] LABS: HPV mRNA E6/E7 rflx Not Detected (Not Detected)
== END 2023-07-31 10:41 | disposition home or self-care (01) ==
LOC: HO.LNP 10:40
PROVIDERS: PCP Internal Medicine; Visit Provider Advanced Practice Midwife
DX: Z01.419 Encounter for gynecological examination (general) (routine) without abnormal findings (principal); Z11.51 Encounter for screening for human papillomavirus (HPV)
CPT/HCPCS: 87624; 88142; G0101; Q0091

== ENCOUNTER 2023-07-31 10:40 | Outpatient (AMB) | payer MEDICARE, SELFPAY ==
--- NOTE | 2023-07-31 11:19 | MHC.OFFVIS ---
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 She is doing well with no concerns. Attempting to eat a healthy diet with calcium and vitamin D and stays active with exercise. Denies any vaginal dryness or irritation. STI testing offered; she declines, no active in many years. Last pap smear; 2018. Last mammogram; 2022. Colonoscopy is UTD. Family history of breast, no ovarian or colon cancer. [facility] Medical History Internal hemorrhoids without complication Diverticulosis Lumbar strain Pure hypercholesterolemia Physical exam Polyarthralgia Obese Menopause present Hypothyroid Anxiety associated with depression Surgical History Hx of colonoscopy History of laparoscopic cholecystectomy History of hand surgery Family History Father No problems noted. Mother Diabetes CHF (congestive heart failure) CKD (chronic kidney disease) Paternal Grandmother Breast cancer Brother Leukemia Paternal Aunt Breast cancer Social History Housing: House Alcohol intake: current Alcohol intake frequency: does not drink Alcohol type: beer Patient Tobacco Use Status: Never used Tobacco Tobacco use type: Cigarette e-Cigarette/Vaping Use: Never Used Second Hand Smoke Exposure: No service: No Current occupational status: retired Cognitive needs: No Hearing needs: No Vision needs: No Female Reproductive History Menstrual Age of Menarche: 9 Total pregnancies: 3 Full term: 2 Number of Living Children: 2 Date of last pap smear: 04/20/18 (neg pap and hpv) Date of Mammogram: 10/03/22 (Birad 1) Date of last Bone Density Screenin10/20/22 Review of Systems Const All systems reviewed & are unremarkable except as noted in HPI and below Reports as per HPI Eyes Reports no additional complaints ENT Reports no additional complaints Card Reports no additional complaints Resp Reports no additional complaints GI Reports as per HPI and Reports no additional complaints Reports as per HPI Musc Reports no additional complaints Skin/Breast Reports as per HPI Neuro Reports no additional complaints Psych Reports no additional complaints Endo Reports no additional complaints Sridhar/Lymph Reports no additional complaints Aller/Immun Reports no additional complaints Physical Exam Vital Signs: Last Vital Signs BP 102/68 07/31/23 11:21 BMI result Body Mass Index 28.2 Const General: cooperative, healthy appearing, no acute distress, well developed and alert Orientation/consciousness: patient oriented x3 HEENT Head: Yes normal to inspection Eyes General: appearance normal, both eyes and all related structures Neck Neck: Yes normal visual inspection Thyroid: Thyroid normal Chest Chest palpation & inspection: normal inspection of the chest and other (no puckering, dimpling, peau de orange, retraction, discharge, masses) Breast/axilla inspection: normal inspection of the breasts Breast/axilla palpation: normal palpation of the breasts Resp Effort & Inspection: normal respiratory effort GI Inspection: Yes normal to inspection and Yes scar Palpation (GI): Soft to palpation Rectal Exam - Female: deferred General: Yes bladder normal to palpation External Female Exam: normal external appearance and normal appearance of the urethra Speculum Exam - Vagina: normal appearance of the vagina, normal palpation, normal vaginal discharge and vagina atrophic Speculum Exam - Cervix: normal appearance of the cervix, normal palpation and Other cervical findings present (Atrophic bled slightly with Pap) Bimanual exam- vagina & uterus: normal bimanual exam, normal palpation, uterine size normal, bladder normal to palpation, normal palpation and non-tender Bimanual Exam- Adnexa, other: no masses Skin General skin exam: no rashes or lesions noted Rashes: no rashes Neuro General: patient oriented x3 Cognition (Neuro): normal cognition Extrem General: Yes normal to inspection Psych Attitude: cooperative Thought process: Normal thought process present Assessment & Plan Assessment & Plan (1) Encounter for well woman exam with routine gynecological exam: Code(s): Z01.419 - Encounter for gynecological examination (general) (routine) without abnormal findings Plan Discussed: Current recommendations for pap smears per ASCCP guidelines. Breast awareness, periodic self breast exams and yearly mammogram. Maintain a healthy lifestyle, well balanced diet including Calcium 1,200 mg and Vitamin D 800 IU daily, and routine exercise. Contact the office with any postmenopausal bleeding. Patient verbalizes understanding and agrees to the plan of care. She was given opportunity to ask questions and all questions were answered to the best of my ability. Return to the office 1 year. This note is constructed using voice recognition software. While every effort has been made to ensure accuracy, director specialty errors may have been included. 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 Coding Level of Care Code Est Pt Prev Care >65y(18413) Diagnoses Encounter for well woman exam with routine gynecological exam Z01.419
[2023-07-31 11:21] VITALS: BP 102/68; BMI 28.2
== END 2023-07-31 11:55 | disposition home or self-care (01) ==
LOC: HO.HWS 10:40
PROVIDERS: PCP Internal Medicine; Referring Provider Internal Medicine; Visit Provider Advanced Practice Midwife
DX: Z01.419 Encounter for gynecological examination (general) (routine) without abnormal findings (principal)
CPT/HCPCS: G0101; Q0091

== ENCOUNTER 2023-08-13 12:35 | Outpatient (AMB) | payer MEDICARE, SELFPAY ==
--- NOTE | 2023-08-13 12:40 | A.OFFPC_ITS ---
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 by: Self / Same As Patient Allergies Penicillins [PENICILLINS] Allergy (Intermediate, Verified 08/13/23 12:56) RASH Medication List - Last Reconciled 08/13/23 by Ratna Palencia MD levothyroxine 50 mcg PO DAILY 90 days selenium sulfide 1% (Dandruff Shampoo (selenium sulfide)) 1 appl topical DAILY 30 days sertraline 25 mg PO DAILY 90 days Tobacco use date assessed: 08/13/23 Fall risk assessment: No Falls in past year Last assessed Fall Risk: 08/13/23 Dental Screening Dental Screen Date: 08/13/23 Did you have a dental visit in the last 12 months?: Yes Did you have a dental problem in the last 6 months where you did not have access to dental care?: No Was dental information given to patient?: Patient has dentist HPI HPI Comments History of Present Illness Details This is a 68-year-old female that comes for her physical exam. Last mammogram was September 2022 and I order another mammogram. Last Pap smear was July 2023 and results are still pending. Colonoscopy done 2023 showing tubular adenoma next colonoscopy should be in 5 years. Bone density done 2022. No chest pain or shortness of breath. Complains of tremors more prominent when having a cup of coffee. PFSH Medical History Internal hemorrhoids without complication Diverticulosis Lumbar strain Pure hypercholesterolemia Physical exam Polyarthralgia Obese Menopause present Hypothyroid Anxiety associated with depression Surgical History Hx of colonoscopy History of laparoscopic cholecystectomy History of hand surgery Family History (Updated 08/13/23 @ 13:00 by Ratna Palencia MD) Father No problems noted. Mother Diabetes CHF (congestive heart failure) CKD (chronic kidney disease) Dementia Paternal Grandmother Breast cancer Brother Leukemia Paternal Aunt Breast cancer Social History (Updated 08/13/23 @ 13:00 by Ratna Palencia MD) Housing: House Alcohol intake: current Alcohol intake frequency: holidays/special occasions only Alcohol type: beer Patient Tobacco Use Status: Never used Tobacco e-Cigarette/Vaping Use: Never Used Second Hand Smoke Exposure: No service: No Current occupational status: retired Cognitive needs: No Hearing needs: No Vision needs: No Female Reproductive History Menstrual Age of Menarche: 9 Questionnaire PHQ-9 Over the last 2 weeks, how often have you been bothered by any of the following problems? 1. Little interest or pleasure in doing things: not at all 2. Feeling down, depressed, or hopeless: not at all 3. Trouble falling or staying asleep, or sleeping too much: not at all 4. Feeling tired or having little energy: not at all 5. Poor appetite or overeating: not at all 6. Feeling bad about yourself - or that you are a failure or have let yourself or your family down: not at all 7. Trouble concentrating on things, such as reading the newspaper or watching television: not at all 8. Moving or speaking so slowly that other people could have noticed. Or the opposite - being so fidgety or restless that you have been moving around a lot more than usual: not at all 9. Thoughts that you would be better off or of hurting yourself in some way: not at all Total score: 0 Depression Screening Interpretation: Negative Depression Screening Done: Yes [id number] - PHQ-9 Billing: Yes Source: Developed by Drs. Bebo Herndon, Flor Ashby, Ramirez De La Garza and colleagues, with an educational ankur from [employer]. Thrive Questionnaire Date Thrive assessed: 08/13/23 I am a: Patient What is your living situation today?: I have a steady place to live Within the past 12 months, did the food you bought not last and you didn't have the money to get more?: Never true Within the past 12 months, did you worry whether your food would run out before you got money to buy more?: Never true Do you have trouble paying for medicines?: No Do you have trouble getting transportation to medical appointments?: No Do you have trouble paying your heating and electricity bill?: No Do you have trouble taking care of your child, family member or friend?: No Do you have trouble with day-to-day activities such as bathing, preparing meals, shopping, managing finances, etc.?: No Are you currently unemployed and looking for a job?: No Are you interested in more education?: No Please select the resources that you would like help with: None Currently or been in a relationship where the following occur: no concerns reported THRIVE Score: 0 AUDIT C Alcohol Use Questionnaire (AUDIT-C) 1. How often do you have a drink containing alcohol?: Never Total Score: 0 LOLIS-7 AMB Questionnaire LOLIS-7 Date LOLIS - 7 assessed: 08/13/23 Feeling nervous, anxious, or on edge: 2 = More than half the days Not being able to stop or control worryin = Not at all Worrying too much about different things: 1 = Several days Trouble relaxin = Several days Being so restless that it is hard to sit still: 1 = Several days Becoming easily annoyed or irritable: 0 = Not at all Feeling afraid as if something awful might happen: 1 = Several days Total LOLIS-7 score (0-4 normal; 5-9 mild; 10-14 moderate; 15-21 severe): 6 Source: Developed by Drs. Bebo Herndon, Flor Ashby, Ramirez De La Garza and colleagues, with an educational ankur from [employer]. LOLIS-7 Assessment Billing LOLIS-7 Assessment Tool: LOLIS-7 Assessment 27333 Review of Systems Const All systems reviewed & are unremarkable except as noted in HPI and below Card Denies chest pain at rest, Denies chest pain with activity, Denies edema, Denies irregular heart rhythm, Denies claudication, Denies dyspnea, Denies dyspnea on exertion, Denies orthopnea, Denies paroxysmal nocturnal dyspnea and Denies slow heart rate Resp Denies cough, Denies dyspnea and Denies dyspnea on exertion Neuro Denies behavioral changes and Denies confusion Psych Denies behavioral changes and Denies confusion Physical exam (Primary Care) Vital Signs: Last Vital Signs BP 126/70 08/13/23 12:45 BMI result Body Mass Index 28.2 Tobacco/Smoking Status: Tobacco use Status Tobacco use date assessed 08/13/23 08/13/23 12:52 Patient Tobacco Use Status Never used Tobacco 08/13/23 12:44 Tobacco use type 08/13/23 12:52 e-Cigarette/Vaping Use Never Used 08/13/23 12:44 PHQ-9: PHQ-9 Score PHQ-9: Total score 0 08/13/23 12:44 Depression Screening Interpretation: Negative Thrive Assessment: Date of Thrive Assessment Date Thrive assessed 08/13/23 08/13/23 12:44 Currently or been in a relationship where the following occur: no concerns reported Const General: No confusion Orientation/consciousness: patient oriented x3 and No confusion HENMT Head: Yes normal to inspection, Yes normocephalic and Yes atraumatic Ears: external ears normal Eyes General: appearance normal, both eyes and all related structures Eyelids: Yes eyelids normal Conjunctivae: conjunctivae normal Neck Neck: Yes normal visual inspection and Yes supple Resp Effort & Inspection: normal respiratory effort Auscultation: clear to auscultation bilaterally Cardio Jugular venous distension: no JVD Rate: regular rate Rhythm: regular rhythm Heart sounds: S1 normal heart sound present and S2 normal heart sound present GI Inspection: Yes normal to inspection Palpation (GI): Soft to palpation and nontender Auscultation: normal bowel sounds Skin General skin exam: no rashes or lesions noted Neuro General: patient oriented x3, no focal motor deficits and No confusion Extrem General: Yes full ROM Psych Appearance: grossly normal Assessment and Plan Assessment & Plan (1) Physical exam: Code(s): Z00.00 - Encounter for general adult medical examination without abnormal findings Plan: Repeat in a year. Orders: Orders Comprehensive Heath. Panel Fast Today Z00.00 - Encounter for general adult medical examination without abnormal findings Vitamin D 25-OH Total Today E55.9 - Vitamin D deficiency, unspecified Lipid Panel Today E78.5 - Hyperlipidemia, unspecified Thyroid Stimulating Hormone Today E03.9 - Hypothyroidism, unspecified Complete Blood Count Auto Diff Today M25.50 - Pain in unspecified joint MM screening mammo BI Today Z12.31 - Encounter for screening mammogram for malignant neoplasm of breast Medications: New propranolol 20 mg PO BID 30 days 60 tabs 0RF G25.2 - Other specified forms of tremor Refilled selenium sulfide 1% (Dandruff Shampoo (selenium sulfide)) massage into affected area; leave on for 10 mins ; rinse off thoroughly 1 appl topical DAILY 30 days 207 mL 3RF Coding Level of Care Code Est Pt Prev Care >65y(95727) Diagnoses Physical exam Z00.00 Additional Codes LOLIS-7 Assessment Billing - LOLIS-7 Assessment Tool: LOLIS-7 Assessment 67081 ([id number]) Time Spent (min) 32
[2023-08-13 12:45] VITALS: BP 126/70; BMI 28.2
== END 2023-08-13 13:11 | disposition home or self-care (01) ==
PROVIDERS: Visit Provider Internal Medicine
DX: G25.2 Other specified forms of tremor (principal)
CPT/HCPCS: 99214

== ENCOUNTER 2023-10-15 09:18 | Outpatient (REF) | payer MEDICARE, SELFPAY | END 2023-10-15 09:19 | disposition home or self-care (01) | LOC: HO.MAMMO 09:18 | PROVIDERS: PCP Internal Medicine; Visit Provider Internal Medicine | DX: Z12.31 Encounter for screening mammogram for malignant neoplasm of breast (principal) | CPT/HCPCS: 77063; 77067 ==

== ENCOUNTER → 2023-10-15 09:30 | Outpatient (BNV) | payer MEDICARE, SELFPAY | PROVIDERS: PCP Internal Medicine; Visit Provider Radiology Diagnostic Radiology | DX: Z12.31 Encounter for screening mammogram for malignant neoplasm of breast (principal) | CPT/HCPCS: 77063; 77067 ==

== ENCOUNTER 2024-02-13 11:01 | Outpatient (AMB) | payer MEDICARE, SELFPAY ==
--- NOTE | 2024-02-13 11:08 | A.OFFPC_ITS ---
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 by: Self / Same As Patient Allergies Penicillins [PENICILLINS] Allergy (Intermediate, Verified 02/13/24 11:41) RASH Medication List - Last Reconciled 02/13/24 by Ratna Palencia MD levothyroxine 50 mcg PO DAILY 90 days propranolol 20 mg PO BID 90 days selenium sulfide 1% (Dandruff Shampoo (selenium sulfide)) 1 appl topical DAILY 30 days sertraline 25 mg PO DAILY 90 days Tobacco use date assessed: 08/13/23 Fall risk assessment: No Falls in past year Last assessed Fall Risk: 02/13/24 Dental Screening Dental Screen Date: 08/13/23 HPI HPI Comments History of Present Illness Details The patient is a 68-year-old female presenting with tremors, seborrheic dermatitis, and for a medication review. The tremors have been treated with propranolol 20 mg twice daily, resulting in significant improvement. There is also a history of hyperlipidemia, last evaluated one year ago with recommendation for repeat cholesterol testing. The patient reports symptoms consistent with seborrheic dermatitis, with episodes of scalp itching intensifying. Treatment includes medicated shampoo, providing some relief when used twice weekly. The patient has a known penicillin allergy and is taking levothyroxine 50 mg daily for thyroid management. A medication review confirmed the discontinuation of sertraline, as the patient feels well and has been off the medication for depression and anxiety. [facility] Medical History Internal hemorrhoids without complication Diverticulosis Lumbar strain Pure hypercholesterolemia Physical exam Polyarthralgia Obese Menopause present Hypothyroid Anxiety associated with depression Surgical History Hx of colonoscopy History of laparoscopic cholecystectomy History of hand surgery Family History Father No problems noted. Mother Diabetes CHF (congestive heart failure) CKD (chronic kidney disease) Dementia Paternal Grandmother Breast cancer Brother Leukemia Paternal Aunt Breast cancer Social History Housing: House Alcohol intake: current Alcohol intake frequency: holidays/special occasions only Alcohol type: beer Patient Tobacco Use Status: Never used Tobacco e-Cigarette/Vaping Use: Never Used Second Hand Smoke Exposure: No service: No Current occupational status: retired Cognitive needs: No Hearing needs: No Vision needs: No Female Reproductive History Menstrual Age of Menarche: 9 Questionnaire Thrive Questionnaire Date Thrive assessed: 08/13/23 LOLIS-7 AMB Questionnaire LOLIS-7 Date LOLIS - 7 assessed: 08/13/23 Source: Developed by Drs. Bebo Herndon, Flor Ashby, Ramirez De La Garza and colleagues, with an educational ankur from [employer]. Review of Systems Const All systems reviewed & are unremarkable except as noted in HPI and below Card Denies chest pain at rest, Denies chest pain with activity, Denies edema, Denies irregular heart rhythm, Denies claudication, Denies dyspnea, Denies dyspnea on exertion, Denies orthopnea, Denies paroxysmal nocturnal dyspnea and Denies slow heart rate Resp Denies cough, Denies dyspnea and Denies dyspnea on exertion Physical exam (Primary Care) Vital Signs: Last Vital Signs BP 130/70 02/13/24 11:09 BMI result Body Mass Index 28.5 BMI Assessment/Plan discussion: High BMI High, discussed plan: lifestyle, weight reduction, dietary and physical activity Tobacco/Smoking Status: Tobacco use Status Tobacco use date assessed 08/13/23 02/13/24 11:15 Patient Tobacco Use Status Never used Tobacco 02/13/24 11:15 Tobacco use type 08/13/23 13:08 e-Cigarette/Vaping Use Never Used 02/13/24 11:15 Thrive Assessment: Date of Thrive Assessment Date Thrive assessed 08/13/23 02/13/24 11:15 Resp Effort & Inspection: normal respiratory effort Auscultation: clear to auscultation bilaterally Cardio Jugular venous distension: no JVD Rate: regular rate Rhythm: regular rhythm Heart sounds: S1 normal heart sound present and S2 normal heart sound present Extrem General: Yes full ROM Office Procedures Flu Questionnaire Does the patient have a severe egg allergy?: No Does the patient have severe life threatening allergies?: No Does the patient have a fever or illness today?: No Has the patient ever had Guillain-Bayside Syndrome?: No Has the patient ever had any past reaction to a flu shot?: No Immunizations Fluarix Triv [id number] (PF) 45 mcg (15 mcg x 3)/0.5 mL IM syringe Performing Provider: Ratna Palencia MD Performing Location: [facility] Administered by: JAQUAN Acosta on 02/13/24 11:17 Dose Route Admin Location Dispensed Lot Number Expiration Date 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 0.5 mL IM Right Deltoid 0.5 mL [id number] 09/22/24 [id number] [facility] VIS Given Date VIS Provided VIS Publication Date 02/13/24 Single Vaccine 20 Eligibility Eligibility Date Funding Source Not [facility] Eligible 02/13/24 Private Coding Level of Care Code Est Pt Level 4 (06109) Complex EM visit Add On G2211 Diagnoses Coarse tremors G25.2 Seborrheic dermatitis of scalp L21.9 Pure hypercholesterolemia E78.00 Acquired hypothyroidism E03.9 Hypothyroidism type: acquired Anxiety associated with depression F41.8 Time Spent (min) 22 Assessment & Plan Assessment & Plan (1) Coarse tremors: Code(s): G25.2 - Other specified forms of tremor Category: Medical (2) Seborrheic dermatitis of scalp: Code(s): L21.9 - Seborrheic dermatitis, unspecified Category: Medical (3) Pure hypercholesterolemia: Code(s): E78.00 - Pure hypercholesterolemia, unspecified Category: Medical (4) Hypothyroid: Code(s): E03.9 - Hypothyroidism, unspecified Category: Medical Qualifiers: Hypothyroidism type: acquired Qualified Code(s): E03.9 - Hypothyroidism, unspecified (5) Anxiety associated with depression: Code(s): F41.8 - Other specified anxiety disorders Category: Medical Plan - For the tremors: Continue propranolol 20 mg twice daily. - For seborrheic dermatitis: Continue using the prescribed shampoo for scalp treatment twice weekly. A refill has been prescribed. - For hyperlipidemia: Order repeat cholesterol and thyroid function tests to assess current status. - For depression and anxiety: Discontinue sertraline as the patient reports no recent symptoms and has not been taking it. Patient was informed and verbally consented to the use of an ambient scribe for clinic note documentation during this visit. During the visit, we discussed the improvement observed with propranolol treatment for tremors. The patient expressed satisfaction with the significant reduction in tremor episodes. For the seborrheic dermatitis, the patient in dicated that prescribed medicated shampoo provides relief, and I emphasized the importance of consistent use. In light of the patient feeling well and not using sertraline for a while, we mutually agreed to discontinue it. I highlighted the need for cholesterol and thyroid function monitoring and discussed potential festive-related weight management challenges. Follow-up for a physical examination is scheduled in September. Orders: Orders Lipid Panel Today E78.5 - Hyperlipidemia, unspecified Comprehensive [place]. Panel Fast Today G25.2 - Other specified forms of tremor Influenza [id number] Immunization Today Z23 - Encounter for immunization Thyroid Stimulating Hormone Today E03.9 - Hypothyroidism, unspecified Medications: Refilled selenium sulfide 1% (Dandruff Shampoo (selenium sulfide)) massage into affected area; leave on for 10 mins ; rinse off thoroughly 1 appl topical DAILY 207 mL 3RF 30 days Discontinued sertraline Discontinued Reason: Patient Completed Course 25 mg PO DAILY 90 days 90 tabs 0RF F41.9 - Anxiety disorder, unspecified Patient Instructions: - Continue propranolol as prescribed for your tremors. - Use the medicated shampoo twice weekly for seborrheic dermatitis relief. Contact the office for a refill if needed. - Abstain from taking sertraline as you feel stable without it. - Undergo the recommended cholesterol and thyroid testing as scheduled. - Aim for moderate dietary habits to manage weight, particularly during the festive season.
[2024-02-13 11:09] VITALS: BP 130/70; BMI 28.5
== END 2024-02-13 11:48 | disposition home or self-care (01) ==
PROVIDERS: PCP Internal Medicine; Visit Provider Internal Medicine
DX: G25.2 Other specified forms of tremor (principal); L21.9 Seborrheic dermatitis, unspecified; E78.00 Pure hypercholesterolemia, unspecified; E03.9 Hypothyroidism, unspecified; F41.8 Other specified anxiety disorders; Z23 Encounter for immunization

== ENCOUNTER → 2024-02-13 11:01 | Outpatient (BNVA) | payer MEDICARE, SELFPAY | PROVIDERS: PCP Internal Medicine; Visit Provider Internal Medicine | DX: Z23 Encounter for immunization (principal); G25.2 Other specified forms of tremor; L21.9 Seborrheic dermatitis, unspecified; E78.00 Pure hypercholesterolemia, unspecified; E03.9 Hypothyroidism, unspecified; F41.8 Other specified anxiety disorders | CPT/HCPCS: 90471; 90656; 99212 ==

== ENCOUNTER 2024-08-19 07:44 | Outpatient (REF) | payer MEDICARE, SELFPAY ==
[2024-08-19 08:59] LABS: Alanine Aminotransferase 27 U/L (0-31); Albumin Level 4.3 g/dL (3.5-5.0); Alkaline Phosphatase 60 U/L (39-117); Anion Gap 11 (12-20); Aspartate Amino Transferase 29 U/L (5-31); Bilirubin Total 0.5 mg/dL (0.0-1.0); Blood Urea Nitrogen 11 mg/dL (9-16); Calcium 9.7 mg/dL (8.4-10.2); Carbon Dioxide 28 mmol/L (22-29); Chloride 106 mmol/L (96-108); Cholesterol 231 mg/dL (<200); Estimated Glomerular Filt Rate > 60; Glucose Fasting 99 mg/dL (60-99); HDL Cholesterol 57 mg/dL (>40); LDL Cholesterol Calculated 149 mg/dL (<100); Potassium 4.4 mmol/L (3.3-5.1); Sodium 141 mmol/L (135-145); Total Protein 7.2 g/dL (6.5-8.0); Triglycerides 129 mg/dL (<150)
[2024-08-19 09:22] LABS: Thyroid Stimulating Hormone 3.32 uIU/mL (0.32-4.0)
== END 2024-08-19 07:45 | disposition home or self-care (01) ==
LOC: HO.LAB 07:44
PROVIDERS: PCP Internal Medicine; Visit Provider Internal Medicine
DX: G25.2 Other specified forms of tremor (principal); E78.5 Hyperlipidemia, unspecified; E03.9 Hypothyroidism, unspecified
CPT/HCPCS: 36415; 80053; 80061; 84443

== ENCOUNTER 2024-08-25 12:36 | Outpatient (AMB) | payer MEDICARE, SELFPAY ==
--- NOTE | 2024-08-25 12:41 | A.OFFVIS_ITS ---
Intake Vital Signs 08/25/24 12:42 Height 5 ft 2 in Weight 157 lb BMI 28.7 BP 138/80 Blood Pressure Location Lt brachial Position Sitting Intake Visit Reasons: SWV G0439/PE Intake Note: Patient here for a subsequent annual wellness visit Intake Nurse Required: No Accompanied by: Self / Same As Patient Allergies Penicillins [PENICILLINS] Allergy (Intermediate, Verified 08/25/24 13:13) RASH Medication List - Last Reconciled 08/25/24 by Ratna Palencia MD levothyroxine 50 mcg PO DAILY 90 days propranolol 20 mg PO BID 90 days selenium sulfide 1% (Dandruff Shampoo (selenium sulfide)) 1 appl topical DAILY 30 days HPI HPI Comments History of Present Illness Details PPP handed to patient. [facility] of care reviewed and updated. The patient is a 69-year-old female presenting for a Medicare Annual Wellness Exam. She had a colonoscopy last year, which identified a tubular adenoma, prompting a recommendation for a follow-up in 2028. Previous screenings have included a mammogram, with recent lab tests revealing notable cholesterol elevation. The cholesterol was measured at 231 mg/dL, an increase compared to previous levels noted two years ago. A Callicoon Risk Score was calculated at 4.8%, indicating close monitoring is warranted although medication is not yet necessary. Renal and liver function were deemed normal. The patient has known penicillin allergy leading to rash development. - Colonoscopy last year revealed a tubul ar adenoma, with a repeat colonoscopy planned for 2028. - Recent mammography conducted. - Comprehensive laboratory testing resul ts: renal function normal, blood glucose 99 mg/dL, liver function normal, cholesterol elevated at 231 mg/dL, thyroid function normal. - Callicoon Risk Score calculated at 4. 8% suggesting lifestyle management for cardiovascular risk. [facility] Medical History (Updated 08/25/24 @ 13:33 by Ratna Palencia MD) Internal hemorrhoids without complication Diverticulosis Lumbar strain Pure hypercholesterolemia Physical exam Polyarthralgia Obese Menopause present Hypothyroid Anxiety associated with depression Surgical History Hx of colonoscopy History of laparoscopic cholecystectomy History of hand surgery Family History Father No problems noted. Mother Diabetes CHF (congestive heart failure) CKD (chronic kidney disease) Dementia Paternal Grandmother Breast cancer Brother Leukemia Paternal Aunt Breast cancer Social History Housing: House Alcohol intake: current Alcohol intake frequency: holidays/special occasions only Alcohol type: beer Patient Tobacco Use Status: Never used Tobacco e-Cigarette/Vaping Use: Never Used Second Hand Smoke Exposure: No service: No Current occupational status: retired Cognitive needs: No Hearing needs: No Vision needs: No Female Reproductive History Menstrual Age of Menarche: 9 Questionnaire Medicare Wellness Checkup [age] What gender do you identify with?: female During the past 4 weeks, how much have you been bothered by emotional problems such as feeling anxious, depressed, irritable, sad or downhearted, and blue?: slightly During the past 4 weeks, has your physical & emotional health limited your social activities with family, friends, neighbors, or groups?: slightly During the past 4 weeks, how much bodily pain have you generally had?: mild pain During the past 4 weeks, was someone available to help you if you needed & wanted help?: yes, some During the past 4 weeks, what was the hardest physical activity you could do for at least 2 minutes?: moderate Can you get to places out of walking distance without help? (For eg., can you travel alone on buses, taxis or drive your car?): Yes Can you go shopping for groceries or clothes without someone's help?: Yes Can you prepare your own meals?: Yes Can you do your housework without help?: Yes Because of any health problems, do you need the help of another person with your personal care needs such as eating, bathing, dressing or getting around the house?: No Can you handle your own money without help?: Yes During the past 4 weeks, how would you rate your health in general?: fair During the past 4 weeks how have things been going for you?: pretty well Are you having difficulties driving your car?: no Do you always fasten your seat belt when you are in a car?: yes, usually During past 4 weeks, have you been bothered by the following: never: Falling or dizzy when standing up, Sexual problems? and Trouble eating well?, often: Teeth or denture problems? and Problems using the telephone? and always: Tiredness or fatigue? Have you fallen 2 or more times in the past year?: No Are you afraid of falling?: Yes Are you a smoker?: no During the past 4 weeks, how many drinks of wine, beer, or other alcoholic beverages did you have?: no alcohol at all Do you exercise for about 20 minutes 3 or more times a week?: yes, some of the time Have you been given information to help with the following?: no: Hazards in your house that might hurt you? and no: Keeping track of your medications? How often do you have trouble taking medicines the way you have been told to take them?: I always take medicine as prescribed How confident are you that you can control & manage most of your health problems?: somewhat confident What is your race?: or origin or descent Mini Mental State Exam (MMSE) Orientation What is the (year) (season) (date) (day) (month)?: year, season, date, day and month Where are we (state) (county) (town or city) (hospital) (floor)?: state, county, town or city, hospital/clinic and floor Registration Name of 3 unrelated objects clearly and slowly, then ask patient to repeat all 3 of them. (1st repeat determines score. Make sure they can repeat all three): object 1, object 2 and object 3 Attention & Calculation (CHOOSE ONE) Spell WORLD backwards (DLROW): 5 letters Recall Ask patient to repeat the 3 items from question #3.: object 1, object 2 and object 3 Language Show patient a wristwatch & ask what it is. Repeat for pencil.: watch and pencil Ask the patient to repeat the phrase 'No ifs, ands, or buts' after you.: correct Ask the patient to 'take a piece of paper with their right hand' 'fold paper in half' 'place paper on floor': take paper in right hand, fold paper in half and place paper on floor Print the sentence 'CLOSE YOUR EYES' on a piece. If patient actually closes eyes then score.: followed written direction Give patient a blank piece of paper & ask to write a sentence. Score if it contains a noun & verb.: sentence contains subject and verb Score Score: 29 Activity of Daily Living Bathing - sponge bath, tub bath or shower: receives no assistance (gets in/out by self, if usual bathing means Dressing - getting clothes from closets & drawers, including inner/outer garments & fasteners.: gets clothes & gets completely dressed without help Toileting - going to the 'toilet room' for urine/bowel elimination & cleaning self/arranging clothes: goes to toilet room, cleans self, arranges clothes without help Transfer: moves in & out of bed and chair without help (may use support object) Continence: controls urination/bowel movements completely by self Feeding: feeds self without help Total Score: 0 Information obtained from: patient Using telephone: independent Traveling: independent Shopping: independent Preparing meals: independent Housework: independent Taking medicine: independent Managing money: independent PHQ-9 Over the last 2 weeks, how often have you been bothered by any of the following problems? 1. Little interest or pleasure in doing things: several days 2. Feeling down, depressed, or hopeless: several days 3. Trouble falling or staying asleep, or sleeping too much: several days 4. Feeling tired or having little energy: not at all 5. Poor appetite or overeating: not at all 6. Feeling bad about yourself - or that you are a failure or have let yourself or your family down: not at all 7. Trouble concentrating on things, such as reading the newspaper or watching television: not at all 8. Moving or speaking so slowly that other people could have noticed. Or the opposite - being so fidgety or restless that you have been moving around a lot more than usual: several days 9. Thoughts that you would be better off or of hurting yourself in some way: not at all Total score: 4 Depression Screening Interpretation: Positive Depression Screening Follow-up: Existing condition and Follow-up Visit Requested Depression Screening Done: Yes 47083 - PHQ-9 Billing: Yes Source: Developed by Drs. Bebo Herndon, Flor Ashby, Ramirez De La Garza and colleagues, with an educational ankur from [employer]. Fall Risk Assessment Fall Risk Assessment Fall risk assessment: No Falls in past year AUDIT C Alcohol Use Questionnaire (AUDIT-C) 1. How often do you have a drink containing alcohol?: Never Total Score: 0 Score Reviewed/Action Taken: No LOLIS-7 AMB Questionnaire LOLIS-7 Date LOLIS - 7 assessed: 08/25/24 Feeling nervous, anxious, or on edge: 1 = Several days Not being able to stop or control worryin = Not at all Worrying too much about different things: 1 = Several days Trouble relaxin = Several days Being so restless that it is hard to sit still: 0 = Not at all Becoming easily annoyed or irritable: 0 = Not at all Feeling afraid as if something awful might happen: 1 = Several days Total LOLIS-7 score (0-4 normal; 5-9 mild; 10-14 moderate; 15-21 severe): 4 Source: Developed by Drs. Bebo Herndon, Flor Ashby, Ramirez De La Garza and colleagues, with an educational ankur from [employer]. LOLIS-7 Assessment Billing LOLIS-7 Assessment Tool: LOLIS-7 Assessment 21355 Thrive Questionnaire Date Thrive assessed: 08/13/23 Review of Systems Const All systems reviewed & are unremarkable except as noted in HPI and below Card Denies chest pain at rest, Denies chest pain with activity, Denies edema, Denies irregular heart rhythm, Denies claudication, Denies dyspnea, Denies dyspnea on exertion, Denies orthopnea, Denies paroxysmal nocturnal dyspnea and Denies slow heart rate Resp Denies cough, Denies dyspnea and Denies dyspnea on exertion GI Denies abdominal pain, Denies change in bowel habits, Denies excessive flatus, Denies nausea and Denies vomiting Denies urinary incontinence, Denies urinary hesitancy and Denies urinary urgency Musc Denies abnormal gait, Denies atrophy, Denies deformity and Denies limited range of motion Skin/Breast Denies bleeding lesions, Denies changing lesions and Denies rash Neuro Denies abnormal gait, Denies behavioral changes, Denies confusion and Denies lack of coordination Psych Denies behavioral changes and Denies confusion Endo Denies cold intolerance Physical Exam Vital Signs: Last Vital Signs BP 138/80 08/25/24 12:42 BMI result Body Mass Index 28.7 Const General: No confusion Orientation/consciousness: No confusion Resp Effort & Inspection: normal respiratory effort Auscultation: clear to auscultation bilaterally Cardio Jugular venous distension: no JVD Rate: regular rate Rhythm: regular rhythm Heart sounds: S1 normal heart sound present and S2 normal heart sound present Neuro General: no focal motor deficits and No confusion Cognition (Neuro): normal cognition Romberg Test: Negative Extrem General: Yes full ROM Assessment & Plan Assessment & Plan (1) Medicare annual wellness visit, subsequent: Code(s): Z00.00 - Encounter for general adult medical examination without abnormal findings (2) Eyelid lesion: Code(s): H02.9 - Unspecified disorder of eyelid (3) Primary osteoarthritis of knee: Code(s): M17.10 - Unilateral primary osteoarthritis, unspecified knee Plan Routine preventive health measures proceed with the inclusion of a bone densitometry to screen for osteoporosis risk. Maintaining current medications and confirming allergy advisories are part of continued care. Healthcare proxy documentation is encouraged to ensure future medical decisions reflect patient?s wishes. Repeat DEXA scan this year. Next colonoscopy 2028. Next Tdap vaccine 2025. Patient was informed and verbally consented to the use of an ambient scribe for clinic note documentation during this visit. Today?s visit focused on reviewing overall wellness and preventive care. A significant aspect was managing elevated cholesterol via dietary improvement, given the Callicoon Risk Score assessment. I reminded the patient of the need for a repeat colonoscopy in 2028 due to her history of a tubular adenoma. We also discussed her comprehensive lab results, emphasizing the importance of regular check-ups to address any developments in her health profile. I explained the importance of updating healthcare proxies to ensure proper representation of her medical decisions, advising her to consider her daughter for this role. Orders: Orders XR DEXA axial skeleton Today Z78.0 - Asymptomatic menopausal state Thyroid Stimulating Hormone 4 Months E03.9 - Hypothyroidism, unspecified Referrals Ophthalmology Referral H02.9 - Unspecified disorder of eyelid Patient Instructions: - Follow a heart-healthy diet to manage cholesterol levels. - Plan to have your next colonoscopy in 2028. - Complete a bone density test as scheduled. - Maintain current medications and avoid penicillin due to allergy. - Consider preparing healthcare proxy forms. - Continue attending regular check-ups for monitoring health status. Quality Reporting (2019) Fall Risk Screening ([facility] 139) Fall risk assessment: No Falls in past year Depression/Bipolar (159/160/161/177) PHQ-9: Total score: 4 Coding Level of Care Code Medicare Subsequent (G0439) Est Pt Level 3 (77044) Diagnoses Medicare annual wellness visit, subsequent Z00.00 Eyelid lesion H02.9 Primary osteoarthritis of knee M17.10 Additional Codes PHQ-9 - 90322 - PHQ-9 Billing: Yes ([id number]) LOLIS-7 Assessment Billing - LOLIS-7 Assessment Tool: LOLIS-7 Assessment 99629 ([id number]) Time Spent (min) 40 Advance Care Planning Advance Care Planning discussion: Exists, not on file Date of discussion: 08/25/24 Who was present: patient and me Forms completed: Health Care Proxy
[2024-08-25 12:42] VITALS: BP 138/80; BMI 28.7
== END 2024-08-25 13:33 | disposition home or self-care (01) ==
PROVIDERS: PCP Internal Medicine; Visit Provider Internal Medicine
DX: Z00.00 Encounter for general adult medical examination without abnormal findings (principal); M17.0 Bilateral primary osteoarthritis of knee; H02.9 Unspecified disorder of eyelid

== ENCOUNTER → 2024-08-25 12:36 | Outpatient (BNVA) | payer MEDICARE, OTHER, SELFPAY | PROVIDERS: PCP Internal Medicine; Visit Provider Internal Medicine | DX: Z00.00 Encounter for general adult medical examination without abnormal findings (principal); H02.9 Unspecified disorder of eyelid; M17.10 Unilateral primary osteoarthritis, unspecified knee | CPT/HCPCS: 96127; 99212 ==

== ENCOUNTER 2024-10-21 09:00 | Outpatient (REF) | payer MEDICARE, MEDICAID, SELFPAY ==
--- NOTE | ~2024-10-21 | MM_ITS ---
EXAMINATION: DXA BONE DENSITY AXIAL HISTORY: Z78.0 - Asymptomatic menopausal state TECHNIQUE: Zuffle Dual energy absorptiometry (DEXA) of the lumbar spine, total left hip, and femoral neck was performed. COMPARISON: Comparison is made with the prior examination dated 10/12/2022. FINDINGS: The bone mineral density of the lumbar spine is 1.033 g/cm2, corresponding to a T-score of -1.2, and a Z-score of 0.2. This is indicative of osteopenia. This represents a BMD change of 0.9% compared to the prior exam. This is not statistically significant. The bone mineral density of the left total hip is 0.824 g/cm2, corresponding to a T-score of -1.5, and a Z-score of -0.1. This is indicative of osteopenia. This represents a BMD change of -9.5% compared to the prior exam. This is statistically significant. The bone mineral density of the left femoral neck is 0.775 g/cm2, corresponding to a T-score of -1.9, and a Z-score of -0.3. This is indicative of osteopenia. This represents a BMD change of 0.9% compared to the prior exam. FRACTURE RISK: The FRAX index suggests a ten year probability of major osteoporotic fracture of 6.4%, and of hip fracture 1.2%. MM/XR DEXA axial skeleton IMPRESSION: Based on bone mineral density, and according to World Health Organization (WHO) criteria, the diagnosis is consistent with osteopenia. Statistically, 68% of repeat scans fall within 1 SD (+/- 0.010 g/cm2 for AP spine L1-L4) and 1 SD (+/- 0.012 g/cm2 for femur total) FRAX is a trademark of the [employer], a World Health Organization (WHO) Collaborating Center. Electronically signed by: Bebo Solomon MD 10/21/2024 10:57 AM EDT
--- NOTE | ~2024-10-21 | MM_ITS ---
EXAMINATION: MM SCREENING DIGITAL BREAST TOMOSYNTHESIS, BILATERAL CLINICAL INFORMATION: Screening. Asymptomatic. COMPARISON: Comparison made to multiple prior, most recent October 15, 2023, and most remote May 19, 2017. TECHNIQUE: Digital breast tomosynthesis is performed in both the craniocaudal and mediolateral oblique views along with computer-aided detection (CAD). Synthesized 2D images are generated from the tomosynthesis. FINDINGS: BREAST COMPOSITION: There are scattered areas of fibroglandular density (ACR BI-RADS breast composition Category b). BILATERAL BREASTS: No significant masses, suspicious calcifications or other abnormalities are seen in either breast. MM/MM tomosynthesis screening BI IMPRESSION: BILATERAL BREASTS: Negative, no mammographic evidence of malignancy. Normal interval follow-up is recommended in 12 months. ASSESSMENT: BI-RADS 1 - Negative RECOMMENDATION: Routine annual mammography screening. FOLLOW-UP: 1 year F/U This examination should not preclude the clinical evaluation of a suspicious palpable abnormality. This patient's information was entered into a reminder system with a target due date for their next mammogram. Electronically signed by: Raul Jacobs MD 10/28/2024 05:34 PM EDT
--- OUTSIDE RECORDS SUMMARY | 2024-10-21 09:19 | XMS_ITS | Patient Health Record ---
Author Organization [facility] Address [address] [place] [address] Care Team Providers Care Prism Measurer Name Role Phone Bebo St Unavailable [phone] Reason For Referral No Information Plan Of Treatment No Information
== END 2024-10-21 09:01 | disposition home or self-care (01) ==
LOC: HO.MAMMO 09:00
PROVIDERS: PCP Internal Medicine; Visit Provider Internal Medicine
DX: Z12.31 Encounter for screening mammogram for malignant neoplasm of breast (principal); Z13.820 Encounter for screening for osteoporosis; Z78.0 Asymptomatic menopausal state
CPT/HCPCS: 77063; 77067; 77080

== ENCOUNTER → 2024-10-21 10:30 | Outpatient (BNV) | payer MEDICARE, MEDICAID, SELFPAY | PROVIDERS: PCP Internal Medicine; Visit Provider Radiology Diagnostic Radiology | DX: Z12.31 Encounter for screening mammogram for malignant neoplasm of breast (principal) | CPT/HCPCS: 77063; 77067 ==

== ENCOUNTER 2024-12-27 08:18 | Outpatient (REF) | payer MEDICARE, MEDICAID, SELFPAY ==
--- OUTSIDE RECORDS SUMMARY | 2024-12-27 08:23 | XMS_ITS | Patient Health Record ---
Author Organization [facility] Address [address] [place] [address] Care Team Providers Care Miller Kiln Dried Salt Name Role Phone Bebo St Unavailable [phone] Reason For Referral No Information Plan Of Treatment No Information
[2024-12-27 10:34] LABS: Thyroid Stimulating Hormone 1.72 uIU/mL (0.32-4.0)
== END 2024-12-27 08:19 | disposition home or self-care (01) ==
LOC: HO.LAB 08:18
PROVIDERS: PCP Internal Medicine; Visit Provider Internal Medicine
DX: E03.9 Hypothyroidism, unspecified (principal)
CPT/HCPCS: 36415; 84443

== ENCOUNTER 2024-12-30 13:32 | Outpatient (AMB) | payer MEDICARE, MEDICAID, SELFPAY ==
--- NOTE | 2024-12-30 13:40 | MHC.PC.OV ---
Vital Signs 12/30/24 13:41 Height 5 ft 2 in Weight 157 lb 2 oz BMI 28.7 BP 130/66 Blood Pressure Location Lt brachial Position Sitting Pulse 61 Pulse Source Pulse Oximeter Temp 97.3 F Temp Source Temporal Artery Scan Pulse Oximetry (%) 99 Oxygen Delivery Method Room Air Intake Visit Reasons: thyroid Intake Note: Patient is here to follow up on Thyroid. 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 Soft Work Language: Swedish Information Interpreted: non-clinical & clinical Cleaner And Preparer: Not Required per policy Accompanied by: Self / Same As Patient Allergies Penicillins (PENICILLINS) Allergy (Intermediate, Verified 12/30/24 13:50) RASH Medication List - Last Reconciled 12/30/24 by Ratna Palencia MD cane As directed levothyroxine 50 mcg PO DAILY 90 days propranolol 20 mg PO BID 90 days selenium sulfide 1% (Dandruff Shampoo (selenium sulfide)) 1 appl topical DAILY 30 days Tobacco use date assessed: 12/30/24 Fall risk assessment: No Falls in past year Last assessed Fall Risk: 12/30/24 Dental Screening Dental Screen Date: 12/30/24 Did you have a dental visit in the last 12 months?: Yes Did you have a dental problem in the last 6 months where you did not have access to dental care?: No Was dental information given to patient?: Patient has dentist HPI HPI Comments History of Present Illness Details The patient is a 69-year-old female presenting with a follow-up on her thyroid condition. She is currently taking levothyroxine 50 mcg for hypothyroidism, and her thyroid levels are reported to be normal. Additionally, she is on propranolol twice daily for anxiety and tremors, which she reports as sometimes causing nervousness. The patient has a history of osteopenia, identified through a bone density scan, and is advised to take calcium with vitamin D as a preventative measure against osteoporosis. She is informed about the potential side effect of constipation from calcium supplementation and is advised to consume yogurt to mitigate this effect. Her cholesterol levels were previously noted to be elevated, and a repeat test is planned for August of the following year. She is allergic to penicillin and does not smoke, with alcohol consumption being extremely rare. [facility] Medical History (Updated 12/30/24 @ 14:00 by Ratna Palencia MD) Internal hemorrhoids without complication Diverticulosis Lumbar strain Pure hypercholesterolemia Physical exam Polyarthralgia Obese Menopause present Hypothyroid Anxiety associated with depression Surgical History Hx of colonoscopy History of laparoscopic cholecystectomy History of hand surgery Family History Father No problems noted. Mother Diabetes CHF (congestive heart failure) CKD (chronic kidney disease) Dementia Paternal Grandmother Breast cancer Brother Leukemia Paternal Aunt Breast cancer Social History Housing: House Alcohol intake: current Alcohol intake frequency: holidays/special occasions only Alcohol type: beer Patient Tobacco Use Status: Never used Tobacco e-Cigarette/Vaping Use: Never Used Second Hand Smoke Exposure: No service: No Current occupational status: retired Cognitive needs: No Hearing needs: No Vision needs: No Female Reproductive History Menstrual Age of Menarche: 9 Questionnaire PHQ-9 Over the last 2 weeks, how often have you been bothered by any of the following problems? 1. Little interest or pleasure in doing things: not at all 2. Feeling down, depressed, or hopeless: several days 3. Trouble falling or staying asleep, or sleeping too much: not at all 4. Feeling tired or having little energy: several days 5. Poor appetite or overeating: several days 6. Feeling bad about yourself - or that you are a failure or have let yourself or your family down: not at all 7. Trouble concentrating on things, such as reading the newspaper or watching television: not at all 8. Moving or speaking so slowly that other people could have noticed. Or the opposite - being so fidgety or restless that you have been moving around a lot more than usual: not at all 9. Thoughts that you would be better off or of hurting yourself in some way: not at all Total score: 3 Depression Screening Interpretation: Positive Depression Screening Follow-up: Existing condition and Follow-up Visit Requested Depression Screening Done: Yes 13811 - PHQ-9 Billing: Yes Source: Developed by Drs. Bebo Herndon, Flor Ashby, Ramirez De La Garza and colleagues, with an educational ankur from [employer]. Thrive Questionnaire Date Thrive assessed: 12/30/24 I am a: Patient What is your living situation today?: I have a steady place to live Within the past 12 months, did the food you bought not last and you didn't have the money to get more?: Never true Within the past 12 months, did you worry whether your food would run out before you got money to buy more?: Never true Do you have trouble paying for medicines?: No Do you have trouble getting transportation to medical appointments?: No Do you have trouble paying your heating and electricity bill?: No Do you have trouble taking care of your child, family member or friend?: No Do you have trouble with day-to-day activities such as bathing, preparing meals, shopping, managing finances, etc.?: No Are you currently unemployed and looking for a job?: No Are you interested in more education?: No Please select the resources that you would like help with: None Currently or been in a relationship where the following occur: No concerns reported THRIVE Score: 0 AUDIT C Alcohol Use Questionnaire (AUDIT-C) 1. How often do you have a drink containing alcohol?: Never Total Score: 0 Score Reviewed/Action Taken: No LOLIS-7 AMB Questionnaire LOLIS-7 Date LOLIS - 7 assessed: 08/25/24 Feeling nervous, anxious, or on edge: 3 = Nearly every day Not being able to stop or control worryin = Nearly every day Worrying too much about different things: 3 = Nearly every day Trouble relaxin = Nearly every day Being so restless that it is hard to sit still: 3 = Nearly every day Becoming easily annoyed or irritable: 0 = Not at all Feeling afraid as if something awful might happen: 0 = Not at all Total LOLIS-7 score (0-4 normal; 5-9 mild; 10-14 moderate; 15-21 severe): 15 Source: Developed by Drs. Bebo Herndon, Flor Ashby, Ramirez De La Garza and colleagues, with an educational ankur from [employer]. LOLIS-7 Assessment Billing LOLIS-7 Assessment Tool: LOLIS-7 Assessment 17730 Review of Systems Const All systems reviewed & are unremarkable except as noted in HPI and below Card Denies chest pain at rest, Denies chest pain with activity, Denies edema, Denies irregular heart rhythm, Denies claudication, Denies dyspnea, Denies dyspnea on exertion, Denies orthopnea, Denies paroxysmal nocturnal dyspnea and Denies slow heart rate Resp Denies cough, Denies dyspnea and Denies dyspnea on exertion Physical exam (Primary Care) Vital Signs: Last Vital Signs Temp 97.3 F 12/30/24 13:41 Pulse 61 12/30/24 13:41 BP 130/66 12/30/24 13:41 Pulse Ox 99 12/30/24 13:41 Oxygen Delivery Method Room Air 12/30/24 13:41 BMI result Body Mass Index 28.7 Tobacco/Smoking Status: Tobacco use Status Tobacco use date assessed 12/30/24 12/30/24 13:45 Patient Tobacco Use Status Never used Tobacco 12/30/24 13:45 Tobacco use type 08/13/23 13:08 e-Cigarette/Vaping Use Never Used 12/30/24 13:45 PHQ-9: PHQ-9 Score PHQ-9: Total score 3 12/30/24 13:45 Depression Screening Interpretation: Positive Depression Screening Follow-up: Existing condition and Follow-up Visit Requested Thrive Assessment: Date of Thrive Assessment Date Thrive assessed 12/30/24 12/30/24 13:45 Currently or been in a relationship where the following occur: No concerns reported Resp Effort & Inspection: normal respiratory effort Auscultation: clear to auscultation bilaterally Cardio Jugular venous distension: no JVD Rate: regular rate Rhythm: regular rhythm Heart sounds: S1 normal heart sound present and S2 normal heart sound present Extrem General: Yes full ROM Coding Level of Care Code Est Pt Level 3 (33679) Diagnoses Acquired hypothyroidism E03.9 Hypothyroidism type: acquired Anxiety F41.9 Osteopenia M85.80 Additional Codes PHQ-9 - 44962 - PHQ-9 Billing: Yes ([id number]) LOLIS-7 Assessment Billing - LOLIS-7 Assessment Tool: LOLIS-7 Assessment 51561 ([id number]) Time Spent (min) 19 Assessment & Plan Assessment & Plan (1) Hypothyroid: Code(s): E03.9 - Hypothyroidism, unspecified Category: Medical Qualifiers: Hypothyroidism type: acquired Qualified Code(s): E03.9 - Hypothyroidism, unspecified (2) Anxiety: Code(s): F41.9 - Anxiety disorder, unspecified Category: Medical (3) Osteopenia: Code(s): M85.80 - Other specified disorders of bone density and structure, unspecified site Category: Medical Plan The patient is a 69-year-old female presenting with a follow-up on her thyroid condition. She is currently taking levothyroxine 50 mcg for hypothyroidism, and her thyroid levels are reported to be normal. Additionally, she is on propranolol twice daily for anxiety and tremors, which she reports as sometimes causing nervousness. The patient has a history of osteopenia, identified through a bone density scan, and is advised to take calcium with vitamin D as a preventative measure against osteoporosis. She is informed about the potential side effect of constipation from calcium supplementation and is advised to consume yogurt to mitigate this effect. Her cholesterol levels were previously noted to be elevated, and a repeat test is planned for August of the following year. She is allergic to penicillin and does not smoke, with alcohol consumption being extremely rare. Orders: Orders Comprehensive Met. Panel 8 Months E78.00 - Pure hypercholesterolemia, unspecified Lipid Panel 8 Months E78.5 - Hyperlipidemia, unspecified Thyroid Stimulating Hormone 8 Months E03.9 - Hypothyroidism, unspecified Medications: New calcium carbonate-vitamin D3 500 mg-10 mcg (400 unit) (Oyster Shell Calcium-Vitamin D3) 1 tab PO BID 180 tabs 1RF 90 days
[2024-12-30 13:41] VITALS: BP 130/66; PULSE 61; TEMP 36.3; O2SAT 99; BMI 28.7
--- OUTSIDE RECORDS SUMMARY | 2024-12-30 16:40 | XMS_ITS | Patient Health Record ---
Author Organization [facility] Address [address] [place] [address] Care Team Providers Care Customer Operations Associate Name Role Phone Bebo St Unavailable [phone] Reason For Referral No Information Plan Of Treatment No Information
== END 2024-12-30 14:01 | disposition home or self-care (01) ==
LOC: HO.HMCH 13:33
PROVIDERS: PCP Internal Medicine; Visit Provider Internal Medicine
DX: E03.9 Hypothyroidism, unspecified (principal); F41.9 Anxiety disorder, unspecified; M85.80 Other specified disorders of bone density and structure, unspecified site

== ENCOUNTER → 2024-12-30 13:32 | Outpatient (BNVA) | payer MEDICARE, MEDICAID, SELFPAY | PROVIDERS: PCP Internal Medicine; Visit Provider Internal Medicine | DX: K57.90 Diverticulosis of intestine, part unspecified, without perforation or abscess without bleeding (principal); E03.9 Hypothyroidism, unspecified; M85.80 Other specified disorders of bone density and structure, unspecified site; F41.9 Anxiety disorder, unspecified; E78.00 Pure hypercholesterolemia, unspecified; Z79.899 Other long term (current) drug therapy | CPT/HCPCS: 96127; 99212 ==